=== PATIENT | female | born 2000 | race Caucasian/White ===

== ENCOUNTER 2021-03-22 17:01 | Emergency (ER) | payer MEDICARE, SELFPAY ==
[2021-03-22 18:46] VITALS: BP 121/61; PULSE 78; RESP 18; TEMP 36.6; O2SAT 100; BMI 22.8
[2021-03-22 19:09] LABS: Appearance Urine HAZY; Color Urine YELLOW; Glucose Urine UA NEG (NEG); Leukocyte Esterase Urine NEG (NEG); Nitrite Urine NEG (NEG); PH 7.5 (5.0-8.0); Urine Blood NEG (NEG); Urine Ketones NEG (NEG); Urine Protein NEG (NEG-TRACE)
[2021-03-22 19:13] LABS: UPreg QC Valid YES; Urine Pregnancy NEGATIVE (NEGATIVE)
--- NOTE | 2021-03-22 21:28 | ED.GENADULT ---
HPI - General Adult General Chief complaint: OB Stated complaint: test Time Seen by Provider: 03/22/21 19:27 Source: patient Mode of arrival: ambulatory Limitations: no limitations History of Present Illness HPI narrative: Patient presents to the ED requesting test. Patient states she is 8 days late on her period. Patient states she took a test at home was faintly positive. Patient denies any vaginal bleeding or severe abdominal pain. Patient denies any dysuria, hematuria, vaginal discharge, flank pain, fever, or chills. Related Data Allergies Allergy/AdvReac Type Severity Reaction Status Date / Time No Known Allergies Allergy Verified 03/22/21 18:46 Review of Systems Review of Systems: Yes all other systems are reviewed and are negative Constitutional: Constitutional: Reports as per HPI and Reports no additional constitutional complaints Eyes: Eyes: Reports as per HPI and Reports no additional eye complaints ENT: Reports system reviewed and no additional complaints, except as documented and Reports as per HPI Cardiovascular: Cardiovascular: Reports as per HPI and Reports no additional cardiovascular complaints Respiratory: Respiratory: Reports as per HPI and Reports no additional respiratory complaints Gastrointestinal: Gastrointestinal: Reports as per HPI and Reports no additional gastrointestinal complaints Genitourinary: Genitourinary: Reports no additional female genitourinary complaints and Reports as per HPI Musculoskeletal: Musculoskeletal: Reports no additional musculoskeletal complaints and Reports as per HPI Neurologic: Reports system reviewed and no additional complaints, except as documented and Reports as per HPI Psychiatric: Psychiatric: Reports no additional psychiatric complaints and Reports as per HPI Endocrine: Endocrine: Reports no additional endocrine complaints and Reports as per HPI [facility] Social History Social History Advance Directives: No Advance Directives Information Provided: Yes Physical Exam Vital Signs: Vital Signs: Last Vital Signs Temp 97.8 F 03/22/21 18:46 Pulse 78 03/22/21 18:46 Resp 18 03/22/21 18:46 BP 121/61 03/22/21 18:46 Pulse Ox 100 03/22/21 18:46 Body Mass Index 22.8 Const: General: cooperative, healthy appearing, comfortable, no acute distress, well developed, alert, awake and Physically active Orientation/consciousness: patient oriented x3 HENMT: Head: Yes normal to inspection, Yes No palpable skull fracture present, Yes normocephalic, Yes atraumatic and No abrasion Eyes: General: appearance normal, both eyes and all related structures Neck: Neck: Yes normal visual inspection, Yes full ROM, Yes no lymphadenopathy, Yes no meningeal signs, Yes trachea midline, Yes supple and No tender Chest: Chest palpation & inspection: normal inspection of the chest and normal palpation of entire chest wall Resp: Effort & Inspection: normal respiratory effort and able to speak in complete sentences Cardio: Jugular venous distension: no JVD Heart sounds: S1 normal heart sound present and S2 normal heart sound present GI: Inspection: Yes normal to inspection and No abdominal wall ecchymosis Palpation (GI): Soft to palpation, not firm, nontender, no guarding and not rigid : General: No CVA tenderness and Yes no CVA tenderness Back/Spine/Pelvis: Back: no CVA tenderness, No CVA tenderness and No back tenderness Skin: General skin exam: no rashes or lesions noted and elasticity normal Neuro: General: patient oriented x3, gait normal, no meningeal signs and CN's II-XI intact bilaterally Cranial nerves: Yes CN's II-XII intact bilaterally Extrem: General: Yes normal to inspection and Yes full ROM Psych: Appearance: grossly normal, well kempt and not disheveled Course Course Course Narrative: UA and UCG negative. BCG order as per patient request. Reevaluation(s) Reevaluation #1: Patient's test came back negative Time: 23:10 Medical Decision Making [facility] Narrative Medical decision making narrative: Negative test Lab Data Labs: Lab Results 03/22/21 03/22/21 03/22/21 Range/Units 18:54 18:54 21:45 Beta HCG, Quant < 2 mIU/mL Urine Color YELLOW Urine Appearance HAZY Urine pH 7.5 (5.0-8.0) Ur Specific [place] 1.020 (1.005-1.025) Urine Protein NEG (NEG-TRACE) MG/DL Urine Glucose (UA) NEG (NEG) MG/DL Urine Ketones NEG (NEG) MG/DL Urine Blood NEG (NEG) Urine Nitrite NEG (NEG) Ur Leukocyte Esterase NEG (NEG) Urine Test NEGATIVE (NEGATIVE) Discharge Plan Discharge Clinical Impression: Encounter for test with result negative Patient Disposition: Home, Self-Care Instructions: Normal Exam (ED) Additional Instructions: Return to the ED immediately any vaginal bleeding, vaginal discharge, severe abdominal pain, flank pain, dysuria, hematuria, or any other concerning symptoms. Please follow-up with your primary care provider. Interventions: ED Discharge Assessment Last Done: 03/22/21 23:25 Discharge Date/Time: 03/22/21 23:26 Print Language: Liberian
[2021-03-22 22:28] LABS: HCG Quantitative < 2 mIU/mL
== END 2021-03-22 23:26 | disposition home or self-care (01) ==
PROVIDERS: Physician Assistant; Emergency Provider Internal Medicine
DX: Z32.02 Encounter for pregnancy test, result negative (principal)
CPT/HCPCS: 36415; 81003; 81025; 84702; 99283; 99284

== ENCOUNTER 2021-04-22 23:30 | Emergency (ER) | payer MEDICARE, SELFPAY ==
--- NOTE | ~2021-04-22 | XR_ITS ---
EXAMINATION: XR CHEST CLINICAL INFORMATION: Pain COMPARISON: None TECHNIQUE: Frontal view of the chest was obtained. FINDINGS: Lung volumes are symmetric. No focal consolidation is seen. No evidence of pneumothorax, pleural effusion, or pulmonary edema. The cardiomediastinal contour is unremarkable. No acute osseous findings are seen. XR/XR chest 1V IMPRESSION: No acute cardiopulmonary findings.
--- NOTE | ~2021-04-22 | CT_ITS ---
EXAMINATION: CT ANGIOGRAM OF THE CHEST WITH AND WITHOUT CONTRAST (CT PULMONARY ANGIOGRAM FOR PE) CLINICAL INFORMATION: Reason for Exam elevated ddimer chest pain COMPARISON: Chest x-ray 04/22/2021 TECHNIQUE: Prior to contrast administration, noncontrast localization images were obtained. Subsequently, multidetector volumetric imaging was performed from the thoracic inlet to below the diaphragms following the administration of 65 mL Omnipaque 350 intravenous contrast. No contrast reaction reported Sagittal, coronal, and MIP oblique sagittal reformatted images were obtained on the CT workstation, uploaded to PACS, and reviewed. This CT examination was performed using dose optimization techniques as appropriate, variously including the following: *Automated exposure control *Adjustment of mA and/or kV according to patient size (this includes techniques or standardized protocols for targeted exams where dose is matched to indication/reason for exam; i.e. extremities or head) *Use of iterative reconstruction technique Total exam dose-length product 162 mGy-cm FINDINGS: QUALITY OF STUDY/CONTRAST BOLUS: Satisfactory. PULMONARY ARTERIES: No central or segmental pulmonary emboli. THORACIC AORTA: No aneurysm or dissection. LUNG: No regions of consolidation. A few small nodules along the left major fissure are most suggestive of lymph nodes. PLEURA: No pleural effusion or pneumothorax. MEDIASTINUM: The visualized thyroid gland is unremarkable. There are subcentimeter mediastinal lymph nodes within the range of normal variation. Cardiac size is within normal limits; no pericardial effusion. No evidence of septal bowing or right heart strain. CHEST WALL/AXILLA: No axillary or internal mammary lymphadenopathy. OSSEOUS STRUCTURES: No acute or suspicious osseous abnormality. UPPER ABDOMEN: Unremarkable. No reflux of contrast into the hepatic veins to suggest elevated right heart pressures. CT/CT angio chest PE protocol IMPRESSION: No pulmonary embolus identified. VTE: negative
[2021-04-22 23:35] VITALS: BP 118/74; PULSE 102; RESP 16; TEMP 37.1; O2SAT 100; BMI 21.9
--- NOTE | 2021-04-22 23:37 | ECG_ITS ---
Test Reason : cp Blood Pressure : / mmHG Vent. Rate : 098 BPM Atrial Rate : 098 BPM P-R Int : 138 ms QRS Dur : 082 ms QT Int : 338 ms P-R-T Axes : 068 069 039 degrees QTc Int : 431 ms Normal sinus rhythm RSR' or QR pattern in V1 suggests right ventricular conduction delay Nonspecific ST abnormality Inferior leads Abnormal ECG No previous ECGs available Referred By: Anna Ornelas Electronically Signed By:DOM MORENO MD
--- NOTE | 2021-04-22 23:38 | ED_ITS ---
HPI - Nausea/Vomiting/Diarrhea General Chief complaint: General Medical Stated complaint: Weakness/ 7 Weeks Time Seen by Provider: 04/22/21 23:37 Source: patient Mode of arrival: ambulatory Limitations: no limitations History of Present Illness HPI Narrative: here with c/o nausea and dry heaves for the past few days - she also c/o chest wall pain and tightness made worse with wretching but also notes it is worse when she exerts herself. She is not on any medications at this time for nausea. Just had US with OB confirmed IUP at 7 weeks. MD elicited complaint: nausea, vomiting and other (chest pain) Pertinent past history: other (7 weeks ) Onset (ago): day(s) (3) Description of vomiting: food contents Associated nausea: Yes Associated abdominal pain: No Location of pain: chest (anterior chest wall) Pain consistency: constant Severity: mild Quality: aching Exacerbating factors: movement, exertion and other (trying to eat, palpation) Relieving factors: none Context: other (7 weeks ) Associated symptoms: chest pain, loss of appetite, malaise and nausea/vomiting Related Data Allergies Allergy/AdvReac Type Severity Reaction Status Date / Time No Known Allergies Allergy Verified 03/22/21 18:46 Review of Systems Review of Systems: Constitutional : No Weight loss, No Fever, No Chills ENT/Mouth : No sore throat, No Rhinorrhea Eyes: No Eye Pain, No Swelling Cardiovascular : pos Chest Pain, no SOB, no Dyspnea on Exertion, No Orthopnea, No Edema, No Palpitations Respiratory : No Cough, No Sputum Gastrointestinal : pos Nausea, pos Vomiting, No Diarrhea, No abdominal Pain, No Hematochezia, No Melena Genitourinary : No Dysuria, No Urinary Frequency, no vaginal bleeding Musculoskeletal : No joint pain, No Myalgias, No Joint Swelling Skin : No Skin Lesions, No rash Neuro : pos Weakness, No Numbness, No Dizziness, No Headache Psych : No Anxiety/Panic, No Depression Heme/Lymph: No Bruising, No Lymphadenopathy Endocrine : No Polyuria, No Polydipsia All other systems reviewed and are negative Gastrointestinal: Gastrointestinal: Reports nausea PMFSH Past Medical History Attestation statement: The following information was validated with the patient. Medical History (Updated 04/23/21 @ 00:35 by Brittany Kelly DO) Anemia Preeclampsia Social History Social History (Updated 04/22/21 @ 23:46 by Brittany Kelly DO) Patient Tobacco Use Status: Never used Tobacco Advance Directives: No Advance Directives Information Provided: No Patient : Yes Physical Exam Vital Signs: Vital Signs: Last Vital Signs Temp 98.8 F 04/22/21 23:35 Pulse 102 H 04/22/21 23:35 Resp 16 04/22/21 23:35 BP 118/74 04/22/21 23:35 Pulse Ox 100 04/22/21 23:35 Body Mass Index 21.9 Appearance: Alert. Oriented X3. No acute distress. Eyes: Pupils equal, round and reactive to light. ENT: Pharynx dry MM Neck: Normal inspection. Neck supple. CVS: tachycardic heart rate and rhythm. Pulses normal. Chest: ttp along anterior chest wall Respiratory: No respiratory distress. Breath sounds normal. Abdomen: Soft and non-tender. Skin: Skin warm and dry. pale skin color. Extremities: No lower extremity edema. No calf ttp Neuro: Oriented X 3. No motor deficit. No sensory deficit. Course Course Course Narrative: troponin 57.9 no CHRISTOPHER on EKG, no sig ACS risk factors not on Fe - anemia has increased from her prior given ddimer, troponin and t wave inversions the patient needs CT scan to r/o PE at this time signed out to Dr. Ornelas pending CTA and repeat troponin, patient states she feels much better at this time MDM - Nausea/Vomiting/Diarrhea MDM Narrative Medical decision making narrative: 21 yo female hx of anemia here with n/v and chest pain for a few days she is 7 weeks with confirmed IUP on US with her OB today. At this time she c/o n/v and chest pain, she does have some inverted t waves in anterior leads but no priors are available - will obtain labs, troponin, ddimer given tachycardia / t wave inversions as well as risk, IVF, reglan and benadryl. Dispo per results and findings. Lab Data Result diagrams: 04/22/21 23:59 04/22/21 23:59 Labs: Lab Results 04/22/21 04/22/21 04/22/21 Range/Units 23:59 23:59 23:59 WBC 7.4 (4.8-10.8) X10*3/uL RBC 3.94 L (4.20-5.50) X10*6/uL Hgb 8.6 L (12.0-16.0) g/dl Hct 26.9 L (37-47) % MCV 68.3 L (80-98) fL MCH 21.8 L (27.0-33.0) pg MCHC 32.0 (31.0-35.0) g/dl RDW 18.0 H (11.0-16.0) % Plt Count 208 (160-400) X10*3/uL MPV Not Reportable Immature Gran % (Auto) 0.3 (0.0-0.4) % Neut % (Auto) 66.8 (45-73) % Lymph % (Auto) 17.5 L (20-40) % [place] % (Auto) 14.7 H (2-11) % Eos % (Auto) 0.4 (0-4) % Baso % (Auto) 0.3 (0-2) % Lymph # (Auto) 1.3 (1.2-4.9) X10*3/uL [place] # (Auto) 1.1 (0.1-1.2) X10*3/uL Eos # (Auto) 0.0 (0.0-0.4) X10*3/uL Baso # (Auto) 0.0 (0.0-0.2) X10*3/uL Abs Immat Gran (auto) 0.02 (0.00-0.03) X10*3/uL Absolute Neuts (auto) 5.0 (2.0-8.3) X10*3/uL Absolute Nucleated RBC 0.000 (0.0-0.012) X10*3/uL Nucleated RBC % (auto) 0.0 (0.0-0.2) /100WBC Smear Tech's Comments VERIFIED D-Dimer NG/ML Sodium 133 L (135-145) mmol/L Potassium 3.2 L (3.3-5.1) mmol/L Chloride 100 (96-108) mmol/L Carbon Dioxide 24 (22-29) mmol/L Anion Gap 12 (12-20) BUN 7 L (9-16) mg/dL Creatinine 0.69 (0.5-1.4) mg/dL Estim Creat Clear Calc 100.2 Estimated GFR > 60 Random Glucose 85 (60-115) mg/dL Calcium 8.6 (8.4-10.2) mg/dL Magnesium 1.9 (1.6-2.6) mg/dL Total Bilirubin 0.7 (0.0-1.0) mg/dL Direct Bilirubin 0.4 (0.0-0.5) mg/dL AST 15 (5-31) U/L ALT 11 (0-31) U/L Alkaline Phosphatase 51 (39-117) U/L Troponin I High Sens (<3.5-17.0) ng/L Total Protein 7.8 (6.5-8.0) g/dL Albumin 3.5 (3.5-5.0) g/dL Lipase 25 (8-78) U/L COVID-19 (NEGRA) Negative (Negative) COVID-19 Clin Com See Note 04/22/21 04/22/21 Range/Units 23:59 23:59 WBC (4.8-10.8) X10*3/uL RBC (4.20-5.50) X10*6/uL Hgb (12.0-16.0) g/dl Hct (37-47) % MCV (80-98) fL MCH (27.0-33.0) pg MCHC (31.0-35.0) g/dl RDW (11.0-16.0) % Plt Count (160-400) X10*3/uL MPV Immature Gran % (Auto) (0.0-0.4) % Neut % (Auto) (45-73) % Lymph % (Auto) (20-40) % [place] % (Auto) (2-11) % Eos % (Auto) (0-4) % Baso % (Auto) (0-2) % Lymph # (Auto) (1.2-4.9) X10*3/uL [place] # (Auto) (0.1-1.2) X10*3/uL Eos # (Auto) (0.0-0.4) X10*3/uL Baso # (Auto) (0.0-0.2) X10*3/uL Abs Immat Gran (auto) (0.00-0.03) X10*3/uL Absolute Neuts (auto) (2.0-8.3) X10*3/uL Absolute Nucleated RBC (0.0-0.012) X10*3/uL Nucleated RBC % (auto) (0.0-0.2) /100WBC Smear Tech's Comments D-Dimer 1363 NG/ML Sodium (135-145) mmol/L Potassium (3.3-5.1) mmol/L Chloride (96-108) mmol/L Carbon Dioxide (22-29) mmol/L Anion Gap (12-20) BUN (9-16) mg/dL Creatinine (0.5-1.4) mg/dL Estim Creat Clear Calc Estimated GFR Random Glucose (60-115) mg/dL Calcium (8.4-10.2) mg/dL Magnesium (1.6-2.6) mg/dL Total Bilirubin (0.0-1.0) mg/dL Direct Bilirubin (0.0-0.5) mg/dL AST (5-31) U/L ALT (0-31) U/L Alkaline Phosphatase (39-117) U/L Troponin I High Sens 57.9 H* (<3.5-17.0) ng/L Total Protein (6.5-8.0) g/dL Albumin (3.5-5.0) g/dL Lipase (8-78) U/L COVID-19 (NEGRA) (Negative) COVID-19 Clin Com ECG Data Attestation: I personally reviewed and interpreted this ECG as follows: ECG interpretation date: 04/22/21 ECG interpretation time: 23:49 Interpretation: Rate: 98 Rhythm: NSR [place]: normal Normal P waves. Normal KHALIF. Normal QRS complex. ST T wave : inverted in V1-V3, no CHRISTOPHER qTC: normal prior studies: no prior no sig ischemia The study has been interpreted contemporaneously by me. . Discharge Plan Discharge Clinical Impression: Acute hypokalemia, Acute dehydration, Hyperemesis, Elevated troponin Anemia Qualifiers: Anemia type: unspecified type Qualified Code(s): D64.9 - Anemia, unspecified
--- NOTE | 2021-04-22 23:52 | PC.NURSE ---
XRay at bedside. Plan for IV, labs and meds when finished.
[2021-04-23] MEDS: Metoclopramide HCl 10 MG/2 ML VIAL IVPUSH (00:01)
[2021-04-23] MEDS: 0.9 % Sodium Chloride 1,000 ML 999 ML IVCONT (00:01)
[2021-04-23] MEDS: Famotidine/PF 20 MG/2 ML VIAL IVPUSH (00:01)
[2021-04-23] MEDS: diphenhydrAMINE HCL 50 MG/ML VIAL 25 MG IVPUSH (00:01)
[2021-04-23 00:08] LABS: Eosinophils Percent Auto 0.4 % (0-4); Hemoglobin 8.6 g/dl (12.0-16.0); Imm Gran Abs Auto 0.02 X10*3/uL (0.00-0.03); Imm Gran Pct Auto 0.3 % (0.0-0.4); Lymphocytes Percent Auto 17.5 % (20-40); MANUAL DIFF FLAG SCAN; SCAN SMEAR FLAG 1
[2021-04-23 00:10] LABS: Basophils Percent Auto 0.3 % (0-2); Hematocrit 26.9 % (37-47); Lymphocytes Absolute Auto 1.3 X10*3/uL (1.2-4.9); Mean Corpuscular Hemoglobin 21.8 pg (27.0-33.0); Mean Corpuscular Volume 68.3 fL (80-98); Monocytes Absolute Auto 1.1 X10*3/uL (0.1-1.2); Monocytes Percent Auto 14.7 % (2-11); Neutrophils Percent Auto 66.8 % (45-73); Platelet Count 208 X10*3/uL (160-400); Red Blood Count 3.94 X10*6/uL (4.20-5.50); White Blood Count 7.4 X10*3/uL (4.8-10.8)
[2021-04-23 00:11] LABS: PLT ABN DIST 1
[2021-04-23 00:24] LABS: Alanine Aminotransferase 11 U/L (0-31); Albumin Level 3.5 g/dL (3.5-5.0); Alkaline Phosphatase 51 U/L (39-117); Anion Gap 12 (12-20); Aspartate Amino Transferase 15 U/L (5-31); Bilirubin Direct 0.4 mg/dL (0.0-0.5); Bilirubin Total 0.7 mg/dL (0.0-1.0); Blood Urea Nitrogen 7 mg/dL (9-16); Calcium 8.6 mg/dL (8.4-10.2); Carbon Dioxide 24 mmol/L (22-29); Chloride 100 mmol/L (96-108); Creatinine Clr Calc Pharmacy 100.2; Estimated Glomerular Filt Rate > 60; Glucose Random 85 mg/dL (60-115); Lipase 25 U/L (8-78); Magnesium 1.9 mg/dL (1.6-2.6); Potassium 3.2 mmol/L (3.3-5.1); Sodium 133 mmol/L (135-145); Total Protein 7.8 g/dL (6.5-8.0)
--- NOTE | 2021-04-23 00:27 | PC.NURSE ---
IV established, pt medicated per MAR. Awaiting labs and urine.
[2021-04-23 00:28] LABS: SLIDE REVIEW VERIFIED
[2021-04-23] MEDS: 0.9 % Sodium Chloride 1,000 ML 999 ML IV (00:31)
[2021-04-23] MEDS: Potassium Chloride ER 20 MEQ TAB.ER.PRT PO (00:31)
[2021-04-23 00:34] LABS: IDNOW Serial# 9DD0AD1C; Troponin-I High Sensitivity 57.9 ng/L (<3.5-17.0)
[2021-04-23 00:35] LABS: COVID-19 Test Negative (Negative)
[2021-04-23 00:37] LABS: D Dimer 1363 NG/ML
--- NOTE | 2021-04-23 00:41 | PC.NURSE ---
MD at bedside discussing results and plan of care.
[2021-04-23 00:52] LABS: C Reactive Protein 12.93 mg/dL (< or = 0.50)
--- NOTE | 2021-04-23 00:54 | PC.NURSE ---
Pt off to CT on hospital bed.
[2021-04-23 01:02] LABS: INTERNATIONAL NORM RATIO 1.3 (0.9-1.1); Prothrombin Time 14.3 SEC (9.9-13.0)
[2021-04-23 01:05] LABS: Partial Thromboplastin Time 28.6 SEC (24.1-38.0)
[2021-04-23] MEDS: iohexoL 350 MG/ML 100 ML INFUS..BTL 65 ML IV (01:14)
--- NOTE | 2021-04-23 01:15 | PC.NURSE ---
Pt returns from CT at this time. IVF infusing per MAR. Plan for 0200 Troponin.
[2021-04-23 01:17] LABS: B Type Natriuretic Peptide 79 pg/mL (<100)
[2021-04-23 01:27] VITALS: BP 101/60; PULSE 90; RESP 22; TEMP 37; O2SAT 100
[2021-04-23 01:28] LABS: Erythrocyte Sedimentation Rate 69 MM/HR (0-20)
[2021-04-23 02:43] LABS: Troponin-I High Sensitivity 54.7 ng/L (<3.5-17.0)
--- NOTE | 2021-04-23 03:10 | ECG_ITS ---
Test Reason : REPEAT Blood Pressure : / mmHG Vent. Rate : 092 BPM Atrial Rate : 092 BPM P-R Int : 142 ms QRS Dur : 078 ms QT Int : 350 ms P-R-T Axes : 064 069 046 degrees QTc Int : 432 ms Normal sinus rhythm Normal ECG T wave amplitude has increased in Inferior leads RSR' or QR pattern in V1 suggests right ventricular conduction delay is no longer Present Referred By: Anna Ornelas Electronically Signed By:DOM MORENO MD
--- NOTE | 2021-04-23 03:20 | PC.NURSE ---
emerging technologies director at bedside for repeat EKG.
[2021-04-23 03:23] VITALS: BP 101/53; PULSE 94; RESP 16; TEMP 37.2; O2SAT 100
== END 2021-04-23 03:46 | disposition home or self-care (01) ==
PROVIDERS: Emergency Medicine; Emergency Provider Emergency Medicine
DX: O21.1 Hyperemesis gravidarum with metabolic disturbance (principal); D64.9 Anemia, unspecified; R06.02 Shortness of breath; R77.8 Other specified abnormalities of plasma proteins; Z3A.01 Less than 8 weeks gestation of pregnancy; Z20.822 Contact with and (suspected) exposure to COVID-19; Z79.899 Other long term (current) drug therapy
CPT/HCPCS: 36415; 71045; 71275; 80048; 80076; 83690; 83735; 83880; 84484; 84702; 85025; 85379; 85610; 85652; 85730; 86140; 87635; 93005; 96361; 96374; 96375; 99284; J1200; J2765; Q9967

== ENCOUNTER 2021-07-14 00:45 | Inpatient (IN) | payer MEDICAID, SELFPAY ==
--- NOTE | ~2021-07-14 | US_ITS ---
EXAMINATION: US RETROPERITONEAL LIMITED (RENAL ONLY) CLINICAL INFORMATION: Right-sided flank pain. COMPARISON: Abdominal ultrasound from 04/01/2015 TECHNIQUE: Portable renal and bladder ultrasound performed in the emergency department. FINDINGS: RIGHT KIDNEY: 12.4 x 6.4 x 5.9 cm (SAG x AP x TRV). The kidney is normal in size, contour, and echogenicity. Renal cortical thickness is normal. No calculi or focal parenchymal lesions. There is moderate hydronephrosis. LEFT KIDNEY: 12.3 x 4.8 x 4.7 cm (SAG x AP x TRV). The kidney is normal in size, contour, and echogenicity. Renal cortical thickness is normal. No calculi or focal parenchymal lesions. No hydronephrosis. BLADDER: Bilateral ureteral ureteral jets are present the right jet appears smaller than the left jet. US/US renal BI IMPRESSION: Moderate right hydronephrosis.
--- NOTE | ~2021-07-14 | US_ITS ---
EXAMINATION: ULTRASOUND OB LIMITED CLINICAL INFORMATION: Second trimester with pyelonephritis. Right flank pain. COMPARISON: Ultrasound pelvis 05/15/2019. TECHNIQUE: Limited transabdominal pelvic ultrasound was performed. FINDINGS: There is a single live intrauterine fetus with the good motion and a heart rate of 155 bpm. The fetus is in cephalic position with posterior right placenta. Limited measurements of head circumference 17.62 cm, BPD of 4.51 cm, OFD 57.3 cm, femoral length 2.85 cm and head circumference of 17.26 cm corresponds to an ultrasound gestational age of 19 weeks and 6 days. There is visualization of stomach and bladder. Maternal right ovary measures 3.5 x 3.4 x 2.2 cm and appears within normal limits. Left ovary is not seen. There is no free fluid in the cul-de-sac. US/US OB limited IMPRESSION: 1. Single live intrauterine fetus with good motion and a heart rate of 155 bpm. 2. Limited measurements correspond to an ultrasound gestational age of 19 weeks and 6 days. #.The cervix is normal length measuring 3.7 cm.
[2021-07-14 00:51] VITALS: BP 99/53; PULSE 126; RESP 18; TEMP 36.4; O2SAT 97; BMI 23.8
[2021-07-14 01:19] LABS: Basophils Percent Auto 0.1 % (0-2); Eosinophils Percent Auto 0.2 % (0-4); Hematocrit 24.7 % (37.0-47.0); Hemoglobin 7.9 g/dl (12.0-16.0); Imm Gran Abs Auto 0.05 X10*3/uL (0.00-0.03); Imm Gran Pct Auto 0.5 % (0.0-0.4); Lymphocytes Absolute Auto 1.2 X10*3/uL (1.2-4.9); Lymphocytes Percent Auto 11.8 % (20-40); MANUAL DIFF FLAG NO; Mean Corpuscular Hemoglobin 22.1 pg (27.0-33.0); Mean Corpuscular Volume 69.2 fL (80.0-98.0); Mean Platelet Volume 9.1 fL (9.4-12.3); Monocytes Absolute Auto 1.1 X10*3/uL (0.1-1.2); Monocytes Percent Auto 11.2 % (2-11); Neutrophils Absolute Auto 7.7 x10*3/uL (2.0-8.3); Neutrophils Percent Auto 76.2 % (45-73); Platelet Count 211 X10*3/uL (160-400); Red Blood Count 3.57 X10*6/uL (4.20-5.50)
[2021-07-14 01:39] LABS: Alanine Aminotransferase 8 U/L (0-31); Albumin Level 2.8 g/dL (3.5-5.0); Alkaline Phosphatase 83 U/L (39-117); Anion Gap 11 (12-20); Aspartate Amino Transferase 14 U/L (5-31); Bilirubin Total 0.7 mg/dL (0.0-1.0); Blood Urea Nitrogen 3 mg/dL (9-16); Calcium 8.3 mg/dL (8.4-10.2); Carbon Dioxide 22 mmol/L (22-29); Chloride 103 mmol/L (96-108); Creatinine Clr Calc Pharmacy 108.1; Estimated Glomerular Filt Rate > 60; Glucose Random 107 mg/dL (60-115); Lipase 8 U/L (8-78); Potassium 3.5 mmol/L (3.3-5.1); Sodium 132 mmol/L (135-145); Total Protein 7.4 g/dL (6.5-8.0)
[2021-07-14 01:42] LABS: COVID-19 Test Positive (Negative); IDNOW Serial# 9DD0AD1C
[2021-07-14 02:00] VITALS: BP 122/73; PULSE 118; RESP 15; O2SAT 100
[2021-07-14 04:03] LABS: Appearance Urine CLOUDY; Color Urine YELLOW; Glucose Urine UA NEG (NEG); Leukocyte Esterase Urine 3+ (NEG); Nitrite Urine NEG (NEG); Specific Gravity - Urine 1.015 (1.005-1.025); UACC Culture Trigger YES; UPreg QC Valid YES; Urine Blood 1+ (NEG); Urine Ketones NEG (NEG); Urine Pregnancy POSITIVE (NEGATIVE); Urine Protein 1+ MG/DL (NEG-TRACE)
[2021-07-14 04:12] LABS: Bacteria Urine 4+ /LPF; RBC Urine 0-2 /HPF (0); Squamous Epithelial Cell Urine 3+ /LPF; WBC Clumps Urine NOTED; WBC Urine 50-75 /HPF (0-4)
[2021-07-14 05:21] LABS: HCG Quantitative 115868 mIU/mL
--- NOTE | 2021-07-14 05:26 | ED.ABDPAIN ---
HPI - Abdominal Pain General Chief Complaint: Abdominal Pain <Jeremy Pedroza MD - Last Filed: 07/25/21 06:54> Stated Complaint: R lower back pain; 18 wks 6 days <Jeremy Pedroza MD - Last Filed: 07/25/21 06:54> Time Seen by Provider: 07/14/21 05:26 <Jeremy Pedroza MD - Last Filed: 07/25/21 06:54> Source: patient <Jeremy Pedroza MD - Last Filed: 07/25/21 06:54> Mode of arrival: ambulatory <Jeremy Pedroza MD - Last Filed: 07/25/21 06:54> Limitations: no limitations <Jeremy Pedroza MD - Last Filed: 07/25/21 06:54> History of Present Illness HPI narrative: patient with right sided abdominal pain x 4 days. Patient states the pain is worse today. Patient had chills, no dysuria, no vaginal disharge, no vomiting or diarrhea. Patient is 18 weeks , patient is not vaccinated. no misscariages <Jeremy Pedroza MD - Last Filed: 07/25/21 06:54> MD elicited complaint: abdominal pain <Jeremy Pedroza MD - Last Filed: 07/25/21 06:54> Pertinent past history: none <Jeremy Pedroza MD - Last Filed: 07/25/21 06:54> Onset (ago): day(s) <Jeremy Pedroza MD - Last Filed: 07/25/21 06:54> Pain Consistency: constant <Jeremy Pedroza MD - Last Filed: 07/25/21 06:54> Severity: mild <Jeremy Pedroza MD - Last Filed: 07/25/21 06:54> Quality: stabbing <Jeremy Pedroza MD - Last Filed: 07/25/21 06:54> Radiation: RLQ <Jeremy Pedroza MD - Last Filed: 07/25/21 06:54> Associated symptoms: fever and chills <Jeremy Pedroza MD - Last Filed: 07/25/21 06:54> Related Data Hx Last Menstrual Period: Patient is currently 18 weeks <Jeremy Pedroza MD - Last Filed: 07/25/21 06:54> Home Medications: Previous Rx's Medication Instructions Recorded vit no.78-iron 18 1 cap PO DAILY #30 cap 04/23/21 mg-folic acid no.1 1 mg-dha 300 mg capsule (Prenate DHA (ferrous asparto glycinate)) cefuroxime axetil 500 mg tablet 500 mg PO Q12H 10 Days #20 tab 07/15/21 nitrofurantoin macrocrystal 50 mg 50 mg PO Q24H 30 Days #30 cap 07/15/21 capsule <Jeremy Pedroza MD - Last Filed: 07/25/21 06:54> Allergies/Adverse Reactions: Allergies Allergy/AdvReac Type Severity Reaction Status Date / Time No Known Allergies Allergy Verified 03/22/21 18:46 <Jeremy Pedroza MD - Last Filed: 07/25/21 06:54> Review of Systems Constitutional: Reports no additional constitutional complaints <Jeremy Pedroza MD - Last Filed: 07/25/21 06:54> Eyes: Reports no additional eye complaints <Jeremy Pedroza MD - Last Filed: 07/25/21 06:54> Denies dizziness <Jeremy Pedroza MD - Last Filed: 07/25/21 06:54> Cardiovascular: Reports no additional cardiovascular complaints <Jeremy Pedroza MD - Last Filed: 07/25/21 06:54> Respiratory: Reports as per HPI <Jeremy Pedroza MD - Last Filed: 07/25/21 06:54> Gastrointestinal: Reports no additional gastrointestinal complaints <Jeremy Pedroza MD - Last Filed: 07/25/21 06:54> Genitourinary: Reports no additional female genitourinary complaints <Jeremy Pedroza MD - Last Filed: 07/25/21 06:54> Musculoskeletal: Reports no additional musculoskeletal complaints <Jeremy Pedroza MD - Last Filed: 07/25/21 06:54> Skin/Breast: Denies rash <Jeremy Pedroza MD - Last Filed: 07/25/21 06:54> Reports system reviewed and no additional complaints, except as documented, Denies dizziness and Denies Sensory deficit (Neuro) <Jeremy Pedroza MD - Last Filed: 07/25/21 06:54> Psychiatric: Denies anxiety <Jeremy Pedroza MD - Last Filed: 07/25/21 06:54> Physical Exam Vital Signs: Vital Signs: Last Vital Signs Temp 96.4 F L 07/15/21 11:56 Pulse 84 07/15/21 11:56 Resp 18 07/15/21 11:56 BP 90/40 L 07/15/21 11:56 Pulse Ox 100 07/15/21 11:56 BMI result Body Mass Index 23.8 <Jeremy Pedroza MD - Last Filed: 07/25/21 06:54> Vital Signs: Last Vital Signs Temp 96.4 F L 07/15/21 11:56 Pulse 84 07/15/21 11:56 Resp 18 07/15/21 11:56 BP 90/40 L 07/15/21 11:56 Pulse Ox 100 07/15/21 11:56 BMI result Body Mass Index 23.8 <Anna Ornelas MD - Last Filed: 07/14/21 09:52> Const: General: healthy appearing <Jeremy Pedroza MD - Last Filed: 07/25/21 06:54> Nutritional Appearance: average body habitus <Jeremy Pedroza MD - Last Filed: 07/25/21 06:54> Orientation/consciousness: oriented to person and patient oriented x3 <Jeremy Pedroza MD - Last Filed: 07/25/21 06:54> Limitations: no limitations <Jeremy Pedroza MD - Last Filed: 07/25/21 06:54> HENMT: Head: Yes normal to inspection <Jeremy Pedroza MD - Last Filed: 07/25/21 06:54> Ears: external ears normal <Jeremy Pedroza MD - Last Filed: 07/25/21 06:54> General nose exam: Normal external nose present <Jeremy Pedroza MD - Last Filed: 07/25/21 06:54> Mouth: Normal oral and palatal mucosa present and oropharynx normal <Jeremy Pedroza MD - Last Filed: 07/25/21 06:54> Throat: Yes posterior oropharynx normal <Jeremy Pedroza MD - Last Filed: 07/25/21 06:54> Eyes: General: appearance normal, both eyes and all related structures <Jeremy Pedroza MD - Last Filed: 07/25/21 06:54> Neck: Other: supple <Jeremy Pedroza MD - Last Filed: 07/25/21 06:54> Neck: Yes normal visual inspection <Jeremy Pedroza MD - Last Filed: 07/25/21 06:54> Chest: Chest palpation & inspection: normal inspection of the chest <Jeremy Pedroza MD - Last Filed: 07/25/21 06:54> Resp: Auscultation: clear to auscultation bilaterally <Jeremy Pedroza MD - Last Filed: 07/25/21 06:54> Cardio: Jugular venous distension: no JVD <Jeremy Pedroza MD - Last Filed: 07/25/21 06:54> Rate: regular rate <Jeremy Pedroza MD - Last Filed: 07/25/21 06:54> Rhythm: regular rhythm <Jeremy Pedroza MD - Last Filed: 07/25/21 06:54> Heart sounds: S1 normal heart sound present and S2 normal heart sound present <Jeremy Pedroza MD - Last Filed: 07/25/21 06:54> GI: Other: Patient with gravid abdomen, soft <Jeremy Pedroza MD - Last Filed: 07/25/21 06:54> Auscultation: normal bowel sounds <Jeremy Pedroza MD - Last Filed: 07/25/21 06:54> Back/Spine/Pelvis: Other: moderate right sided CVAT <Jeremy Pedroza MD - Last Filed: 07/25/21 06:54> Skin: General skin exam: no rashes or lesions noted <Jeremy Pedroza MD - Last Filed: 07/25/21 06:54> Neuro: General: oriented to person and patient oriented x3 <Jeremy Pedroza MD - Last Filed: 07/25/21 06:54> Cranial nerves: Yes CN's II-XII intact bilaterally <Jeremy Pedroza MD - Last Filed: 07/25/21 06:54> Motor exam (neuro): 5/5 motor strength present throughout <Jeremy Pedroza MD - Last Filed: 07/25/21 06:54> Sensory Exam: No Sensory deficit (Neuro) <Jeremy Pedroza MD - Last Filed: 07/25/21 06:54> Extrem: General: Yes normal to inspection <Jeremy Pedroza MD - Last Filed: 07/25/21 06:54> Psych: Appearance: grossly normal <Jeremy Pedroza MD - Last Filed: 07/25/21 06:54> Course Course Course Narrative: Patient has all her care at [facility]. We called [facility] trying to transfer her, but unfortunately they do not have any beds. I also discussed the patient with Dr. Ortiz and Dr. Rayo, patient will be admitted here. Patient continues to having flank pain, morphine has been ordered. At this time, sepsis is not suspected. <Anna Ornelas MD - Last Filed: 07/14/21 09:52> Reevaluation(s) Reevaluation #1: At the time of signout patient with suspected pyelonephritis and . She was given ceftriaxone and was awaiting call back from [facility] and Dr. Ortiz <Jeremy Pedroza MD - Last Filed: 07/25/21 06:54> Time: 06:54 <Jeremy Pedroza MD - Last Filed: 07/25/21 06:54> MDM - Abdominal Pain Lab Data Result diagrams: : 07/15/21 08:51 07/15/21 08:51 <Jeremy Pedroza MD - Last Filed: 07/25/21 06:54> Labs: Lab Results 07/14/21 07/14/21 07/14/21 Range/Units 01:11 01:11 01:11 WBC 10.0 (4.8-10.8) X10*3/uL RBC 3.57 L (4.20-5.50) X10*6/uL Hgb 7.9 L (12.0-16.0) g/dl Hct 24.7 L (37.0-47.0) % MCV 69.2 L (80.0-98.0) fL MCH 22.1 L (27.0-33.0) pg MCHC 32.0 (31.0-35.0) g/dl RDW 17.0 H (11.0-16.0) % Plt Count 211 (160-400) X10*3/uL MPV 9.1 L (9.4-12.3) fL Immature Gran % (Auto) 0.5 H (0.0-0.4) % Neut % (Auto) 76.2 H (45-73) % Lymph % (Auto) 11.8 L (20-40) % [place] % (Auto) 11.2 H (2-11) % Eos % (Auto) 0.2 (0-4) % Baso % (Auto) 0.1 (0-2) % Lymph # (Auto) 1.2 (1.2-4.9) X10*3/uL [place] # (Auto) 1.1 (0.1-1.2) X10*3/uL Eos # (Auto) 0.0 (0.0-0.4) X10*3/uL Baso # (Auto) 0.0 (0.0-0.2) X10*3/uL Abs Immat Gran (auto) 0.05 H (0.00-0.03) X10*3/uL Absolute Neuts (auto) 7.7 (2.0-8.3) x10*3/uL Absolute Nucleated RBC 0.000 (0.0-0.012) X10*3/uL Nucleated RBC % (auto) 0.0 (0.0-0.2) /100WBC Sodium 132 L (135-145) mmol/L Potassium 3.5 (3.3-5.1) mmol/L Chloride 103 (96-108) mmol/L Carbon Dioxide 22 (22-29) mmol/L Anion Gap 11 L (12-20) BUN 3 L (9-16) mg/dL Creatinine 0.64 (0.5-1.4) mg/dL Estim Creat Clear Calc 108.1 Estimated GFR > 60 Random Glucose 107 (60-115) mg/dL Calcium 8.3 L (8.4-10.2) mg/dL Total Bilirubin 0.7 (0.0-1.0) mg/dL AST 14 (5-31) U/L ALT 8 (0-31) U/L Alkaline Phosphatase 83 D (39-117) U/L Total Protein 7.4 (6.5-8.0) g/dL Albumin 2.8 L (3.5-5.0) g/dL Lipase 8 (8-78) U/L Beta HCG, Quant 386185 mIU/mL Urine Color Urine Appearance Urine pH (5.0-8.0) Ur Specific [place] (1.005-1.025) Urine Protein (NEG-TRACE) MG/DL Urine Glucose (UA) (NEG) MG/DL Urine Ketones (NEG) MG/DL Urine Blood (NEG) Urine Nitrite (NEG) Ur Leukocyte Esterase (NEG) Urine RBC (0) /HPF Urine WBC (0-4) /HPF Urine WBC Clumps Ur Squamous Epith Cells /LPF Urine Bacteria /LPF Urine Test (NEGATIVE) COVID-19 (NEGRA) Positive A (Negative) COVID-19 Clin Com See Note 07/14/21 07/14/21 Range/Units 03:55 03:55 WBC (4.8-10.8) X10*3/uL RBC (4.20-5.50) X10*6/uL Hgb (12.0-16.0) g/dl Hct (37.0-47.0) % MCV (80.0-98.0) fL MCH (27.0-33.0) pg MCHC (31.0-35.0) g/dl RDW (11.0-16.0) % Plt Count (160-400) X10*3/uL MPV (9.4-12.3) fL Immature Gran % (Auto) (0.0-0.4) % Neut % (Auto) (45-73) % Lymph % (Auto) (20-40) % [place] % (Auto) (2-11) % Eos % (Auto) (0-4) % Baso % (Auto) (0-2) % Lymph # (Auto) (1.2-4.9) X10*3/uL [place] # (Auto) (0.1-1.2) X10*3/uL Eos # (Auto) (0.0-0.4) X10*3/uL Baso # (Auto) (0.0-0.2) X10*3/uL Abs Immat Gran (auto) (0.00-0.03) X10*3/uL Absolute Neuts (auto) (2.0-8.3) x10*3/uL Absolute Nucleated RBC (0.0-0.012) X10*3/uL Nucleated RBC % (auto) (0.0-0.2) /100WBC Sodium (135-145) mmol/L Potassium (3.3-5.1) mmol/L Chloride (96-108) mmol/L Carbon Dioxide (22-29) mmol/L Anion Gap (12-20) BUN (9-16) mg/dL Creatinine (0.5-1.4) mg/dL Estim Creat Clear Calc Estimated GFR Random Glucose (60-115) mg/dL Calcium (8.4-10.2) mg/dL Total Bilirubin (0.0-1.0) mg/dL AST (5-31) U/L ALT (0-31) U/L Alkaline Phosphatase (39-117) U/L Total Protein (6.5-8.0) g/dL Albumin (3.5-5.0) g/dL Lipase (8-78) U/L Beta HCG, Quant mIU/mL Urine Color YELLOW Urine Appearance CLOUDY Urine pH 6.0 (5.0-8.0) Ur Specific [place] 1.015 (1.005-1.025) Urine Protein 1+ H (NEG-TRACE) MG/DL Urine Glucose (UA) NEG (NEG) MG/DL Urine Ketones NEG (NEG) MG/DL Urine Blood 1+ H (NEG) Urine Nitrite NEG (NEG) Ur Leukocyte Esterase 3+ H (NEG) Urine RBC 0-2 (0) /HPF Urine WBC 50-75 H (0-4) /HPF Urine WBC Clumps NOTED Ur Squamous Epith Cells 3+ /LPF Urine Bacteria 4+ /LPF Urine Test POSITIVE H (NEGATIVE) COVID-19 (NEGRA) (Negative) COVID-19 Clin Com <Jeremy Pedroza MD - Last Filed: 07/25/21 06:54> Lab Results 07/14/21 07/14/21 07/14/21 Range/Units 01:11 01:11 01:11 WBC 10.0 (4.8-10.8) X10*3/uL RBC 3.57 L (4.20-5.50) X10*6/uL Hgb 7.9 L (12.0-16.0) g/dl Hct 24.7 L (37.0-47.0) % MCV 69.2 L (80.0-98.0) fL MCH 22.1 L (27.0-33.0) pg MCHC 32.0 (31.0-35.0) g/dl RDW 17.0 H (11.0-16.0) % Plt Count 211 (160-400) X10*3/uL MPV 9.1 L (9.4-12.3) fL Immature Gran % (Auto) 0.5 H (0.0-0.4) % Neut % (Auto) 76.2 H (45-73) % Lymph % (Auto) 11.8 L (20-40) % [place] % (Auto) 11.2 H (2-11) % Eos % (Auto) 0.2 (0-4) % Baso % (Auto) 0.1 (0-2) % Lymph # (Auto) 1.2 (1.2-4.9) X10*3/uL [place] # (Auto) 1.1 (0.1-1.2) X10*3/uL Eos # (Auto) 0.0 (0.0-0.4) X10*3/uL Baso # (Auto) 0.0 (0.0-0.2) X10*3/uL Abs Immat Gran (auto) 0.05 H (0.00-0.03) X10*3/uL Absolute Neuts (auto) 7.7 (2.0-8.3) x10*3/uL Absolute Nucleated RBC 0.000 (0.0-0.012) X10*3/uL Nucleated RBC % (auto) 0.0 (0.0-0.2) /100WBC Sodium 132 L (135-145) mmol/L Potassium 3.5 (3.3-5.1) mmol/L Chloride 103 (96-108) mmol/L Carbon Dioxide 22 (22-29) mmol/L Anion Gap 11 L (12-20) BUN 3 L (9-16) mg/dL Creatinine 0.64 (0.5-1.4) mg/dL Estim Creat Clear Calc 108.1 Estimated GFR > 60 Random Glucose 107 (60-115) mg/dL Calcium 8.3 L (8.4-10.2) mg/dL Total Bilirubin 0.7 (0.0-1.0) mg/dL AST 14 (5-31) U/L ALT 8 (0-31) U/L Alkaline Phosphatase 83 D (39-117) U/L Total Protein 7.4 (6.5-8.0) g/dL Albumin 2.8 L (3.5-5.0) g/dL Lipase 8 (8-78) U/L Beta HCG, Quant [id number] mIU/mL Urine Color Urine Appearance Urine pH (5.0-8.0) Ur Specific [place] (1.005-1.025) Urine Protein (NEG-TRACE) MG/DL Urine Glucose (UA) (NEG) MG/DL Urine Ketones (NEG) MG/DL Urine Blood (NEG) Urine Nitrite (NEG) Ur Leukocyte Esterase (NEG) Urine RBC (0) /HPF Urine WBC (0-4) /HPF Urine WBC Clumps Ur Squamous Epith Cells /LPF Urine Bacteria /LPF Urine Test (NEGATIVE) COVID-19 (NEGRA) Positive A (Negative) COVID-19 Clin Com See Note 07/14/21 07/14/21 Range/Units 03:55 03:55 WBC (4.8-10.8) X10*3/uL RBC (4.20-5.50) X10*6/uL Hgb (12.0-16.0) g/dl Hct (37.0-47.0) % MCV (80.0-98.0) fL MCH (27.0-33.0) pg MCHC (31.0-35.0) g/dl RDW (11.0-16.0) % Plt Count (160-400) X10*3/uL MPV (9.4-12.3) fL Immature Gran % (Auto) (0.0-0.4) % Neut % (Auto) (45-73) % Lymph % (Auto) (20-40) % [place] % (Auto) (2-11) % Eos % (Auto) (0-4) % Baso % (Auto) (0-2) % Lymph # (Auto) (1.2-4.9) X10*3/uL [place] # (Auto) (0.1-1.2) X10*3/uL Eos # (Auto) (0.0-0.4) X10*3/uL Baso # (Auto) (0.0-0.2) X10*3/uL Abs Immat Gran (auto) (0.00-0.03) X10*3/uL Absolute Neuts (auto) (2.0-8.3) x10*3/uL Absolute Nucleated RBC (0.0-0.012) X10*3/uL Nucleated RBC % (auto) (0.0-0.2) /100WBC Sodium (135-145) mmol/L Potassium (3.3-5.1) mmol/L Chloride (96-108) mmol/L Carbon Dioxide (22-29) mmol/L Anion Gap (12-20) BUN (9-16) mg/dL Creatinine (0.5-1.4) mg/dL Estim Creat Clear Calc Estimated GFR Random Glucose (60-115) mg/dL Calcium (8.4-10.2) mg/dL Total Bilirubin (0.0-1.0) mg/dL AST (5-31) U/L ALT (0-31) U/L Alkaline Phosphatase (39-117) U/L Total Protein (6.5-8.0) g/dL Albumin (3.5-5.0) g/dL Lipase (8-78) U/L Beta HCG, Quant mIU/mL Urine Color YELLOW Urine Appearance CLOUDY Urine pH 6.0 (5.0-8.0) Ur Specific [place] 1.015 (1.005-1.025) Urine Protein 1+ H (NEG-TRACE) MG/DL Urine Glucose (UA) NEG (NEG) MG/DL Urine Ketones NEG (NEG) MG/DL Urine Blood 1+ H (NEG) Urine Nitrite NEG (NEG) Ur Leukocyte Esterase 3+ H (NEG) Urine RBC 0-2 (0) /HPF Urine WBC 50-75 H (0-4) /HPF Urine WBC Clumps NOTED Ur Squamous Epith Cells 3+ /LPF Urine Bacteria 4+ /LPF Urine Test POSITIVE H (NEGATIVE) COVID-19 (NEGRA) (Negative) COVID-19 Clin Com <Anna Ornelas MD - Last Filed: 07/14/21 09:52> Discharge Plan Discharge Clinical Impression: Pyelonephritis affecting , COVID-19 affecting in second trimester <Jeremy Pedroza MD - Last Filed: 07/25/21 06:54> Patient Disposition: Admitted As Inpatient <Jeremy Pedroza MD - Last Filed: 07/25/21 06:54> Interventions: Admission Worksheet (ED) Last Done: 07/15/21 11:25 <Jeremy Pedroza MD - Last Filed: 07/25/21 06:54> Discharge Date/Time: 07/15/21 11:00 <Jeremy Pedroza MD - Last Filed: 07/25/21 06:54> PMFSH Past Medical History Medical History: Medical History Anemia Preeclampsia <Jeremy Pedroza MD - Last Filed: 07/25/21 06:54> Surgical History: Surgical History History of delivery <Jeremy Pedroza MD - Last Filed: 07/25/21 06:54> Hx Last Menstrual Period: Patient is currently 18 weeks <Jeremy Pedroza MD - Last Filed: 07/25/21 06:54> Social History Social History: Social History Alcohol intake: never Patient Tobacco Use Status: Never used Tobacco Use of substances other than those prescribed or required for medical reasons: No Advance Directives: No Patient : Yes <Jeremy Pedroza MD - Last Filed: 07/25/21 06:54>
--- NOTE | 2021-07-14 06:27 | PC.NURSE ---
unable to obtain blood cultures at this time, ultrasound at bedside.
[2021-07-14 07:09] VITALS: BP 95/49; PULSE 104; RESP 14; TEMP 37.5; O2SAT 100
--- NOTE | 2021-07-14 07:25 | PC.NURSE ---
pt state 18 wks 6 days , due 12/09/21. ob is from [facility].
[2021-07-14] MEDS: 0.9 % Sodium Chloride 1,000 ML 999 ML IVCONT ×2 (07:33→09:49)
--- NOTE | 2021-07-14 08:41 | PM.GYNCN ---
ADMINISTRATIVE OFFICE SPECIALIST - CN: [facility] Data of Consult Consult date: 07/14/21 <Juliano Ortiz MD - Last Filed: 07/14/21 10:27> Primary Care Provider: Unknown Physician <Juliano Ortiz MD - Last Filed: 07/14/21 10:27> Consult Narrative Narrative: I was consulted on Ruthie Guzman who is a 21 year old female it 18 weeks of gestation 3 para 2 patient presented emergency room with with right flank pain x 4 days.? Patient states the pain is worse today.? Patient had chills, no dysuria, no vaginal disharge, no vomiting or diarrhea.? Patient is 18 weeks , patient is not vaccinated.? No abdominal cramping, leakage of fluid or vaginal bleeding. The workup in the emergency room included the following COVID positive, white count 10K, H&H 7.9/24.7, chemistry negative, urine positive blood leukocyte esterase and wbc's Renal ultrasound showed moderate right hydronephrosis OB ultrasound showed the followin. Single live intrauterine fetus with good motion and a heart rate of 155 bpm. ? 2. Limited measurements correspond to an ultrasound gestational age of 19 weeks and 6 days. ? #.The cervix is normal length measuring 3.7 cm. <Juliano Ortiz MD - Last Filed: 07/14/21 10:27> cc:: CC: <Juliano Ortiz MD - Last Filed: 07/14/21 10:27> COMMERCIAL ARTIST LETTERING - Review of Systems Review of Systems ROS Unobtainable: All systems reviewed & are unremarkable except as noted in HPI and below <Juliano Ortiz MD - Last Filed: 07/14/21 10:27> Cardiovascular: Denies Palpatations, Loss of consciousness or Chest pain <Juliano Ortiz MD - Last Filed: 07/14/21 10:27> Respiratory: Denies Cough, Wheezing or Shortness of breath <Juliano Ortiz MD - Last Filed: 07/14/21 10:27> Musculoskeletal: Denies Low back pain <Juliano Ortiz MD - Last Filed: 07/14/21 10:27> Gastrointestinal: Denies Heartburn, Constipation, Diarrhea, Nausea or Vomiting <Juliano Ortiz MD - Last Filed: 07/14/21 10:27> Genitourinary: Denies Pain with urination, Burning with urination or Urinary frequency <Juliano Ortiz MD - Last Filed: 07/14/21 10:27> Neurological: Denies Migranes <Juliano Ortiz MD - Last Filed: 07/14/21 10:27> Psychological: Denies Depression <Juliano Ortiz MD - Last Filed: 07/14/21 10:27> OB PMFSH Past Medical History Medical History: Medical History (Updated 07/14/21 @ 09:52 by Anna Ornelas MD) Anemia Preeclampsia <Juliano Ortiz MD - Last Filed: 07/14/21 10:27> Social History Social History: Social History (Updated 04/22/21 @ 23:46 by Brittany Kelly DO) Alcohol intake: never Patient Tobacco Use Status: Never used Tobacco Use of substances other than those prescribed or required for medical reasons: No Advance Directives: No Patient : Yes <Juliano Ortiz MD - Last Filed: 07/14/21 10:27> Meds Allergies/Adverse reactions: Allergies Allergy/AdvReac Type Severity Reaction Status Date / Time No Known Allergies Allergy Verified 03/22/21 18:46 <Juliano Ortiz MD - Last Filed: 07/14/21 10:27> Active Medications: Current Medications Ceftriaxone Sodium 1 gm/ (Sodium Chloride) 50 mls @ 100 mls/hr IV Q12H ELISA <Juliano Ortiz MD - Last Filed: 07/14/21 10:27> ADMINISTRATIVE OFFICE SPECIALIST Physical Exam Vitals Vital signs: Temp Pulse Resp BP Pulse Ox 99.5 F 104 H 14 95/49 L 100 07/14/21 07:09 07/14/21 07:09 07/14/21 07:09 07/14/21 07:09 07/14/21 07:09 BMI result Body Mass Index 23.8 <Juliano Ortiz MD - Last Filed: 07/14/21 10:27> Constitutional General Appearance: Healthy appearing, Well-nourished and Well-developed <Juliano Ortiz MD - Last Filed: 07/14/21 10:27> Psychiatric Mood and Affect: active and alert, normal mood and normal affect <Juliano Ortiz MD - Last Filed: 07/14/21 10:27> Skin Appearance: No rashes and No lesions <Juliano Ortiz MD - Last Filed: 07/14/21 10:27> Lungs Respiratory Effort: No intercostal retractions <Juliano Ortiz MD - Last Filed: 07/14/21 10:27> Auscultation: Clear to auscultation <Juliano Ortiz MD - Last Filed: 07/14/21 10:27> Cardiovascular Auscultation: RRR <Juliano Ortiz MD - Last Filed: 07/14/21 10:27> Abdomen Auscultation/Inspection/Palpation: Normal bowel sounds, Soft, Non-distended, No tenderness and Other (Right CVA tenderness) <Juliano Ortiz MD - Last Filed: 07/14/21 10:27> Female Genitalia (Pelvic) Exam: Deferred <Juliano Ortiz MD - Last Filed: 07/14/21 10:27> ADMINISTRATIVE OFFICE SPECIALIST - Results Labs CBC & Chem 7: : 07/14/21 01:11 07/14/21 01:11 <Juliano Ortiz MD - Last Filed: 07/14/21 10:27> Labs: Short CBC 07/14/21 Range/Units 01:11 WBC 10.0 (4.8-10.8) X10*3/uL Hgb 7.9 L (12.0-16.0) g/dl Hct 24.7 L (37.0-47.0) % Plt Count 211 (160-400) X10*3/uL BMP 07/14/21 01:11 Sodium 132 L Potassium 3.5 Chloride 103 Carbon Dioxide 22 BUN 3 L Creatinine 0.64 Calcium 8.3 L Liver Function 07/14/21 Range/Units 01:11 Total Bilirubin 0.7 (0.0-1.0) mg/dL AST 14 (5-31) U/L ALT 8 (0-31) U/L Alkaline Phosphatase 83 D (39-117) U/L Albumin 2.8 L (3.5-5.0) g/dL Urine 07/14/21 07/14/21 Range/Units 03:55 03:55 Urine Color YELLOW Urine Appearance CLOUDY Urine pH 6.0 (5.0-8.0) Ur Specific [place] 1.015 (1.005-1.025) Urine Protein 1+ H (NEG-TRACE) MG/DL Urine Glucose (UA) NEG (NEG) MG/DL Urine Test POSITIVE H (NEGATIVE) <Juliano Ortiz MD - Last Filed: 07/14/21 10:27> Assessment and Plan (1) Pyelonephritis affecting : Status: Acute <Juliano Ortiz MD - Last Filed: 07/14/21 10:27> Urine culture, blood culture to be sent, start Ceftriaxone 1 g Q 24 hours till CVA tenderness resolves and patient is afebrile for 24 hours , and discharge patient on p.o. Macrobid 100 mg p.o. b.i.d. for 5 days, continued patient on suppression therapy Macrobid 50 mg p.o. q.d. till the end of to decrease the recurrence of pyelonephritis. vitamin 1 tablet p.o. q.d. <Juliano Ortiz MD - Last Filed: 07/14/21 10:27> (2) COVID-19 affecting in second trimester: Status: Acute <Juliano Ortiz MD - Last Filed: 07/14/21 10:27> The patient is a candidate for monoclonal antibodies to be given was the patient is discharged from the hospital in order to lower the risk of COVID severe disease and related hospitalization, counseled the patient regarding the benefits and the risks of monoclonal antibody in . Explained to the patient that it is under emergency authorization, the benefits include reduction in the risk of severe COVID disease, hospitalization and , but there is no long-term studies regarding its effect on and the fetus , if the patient is interested, Will fax the referral form <Juliano Ortiz MD - Last Filed: 07/14/21 10:27>
[2021-07-14 09:20] VITALS: BP 93/46; PULSE 106; RESP 14; TEMP 37.6; O2SAT 100
--- NOTE | 2021-07-14 09:25 | PHA.MEDREC ---
Pharmacy Consult ? Medication Reconciliation Pharmacy has completed the medication reconciliation. Patient reports only taking pre- vitamins. Emeli Pritchett, ZoeD
[2021-07-14] MEDS: cefTRIAXone sodium 1 GM in 0.9 % Sodium Chloride 50 ML IV (09:48)
[2021-07-14] MEDS: Morphine Sulfate 2 MG/ML CARTRIDGE IVPUSH (09:48)
--- NOTE | 2021-07-14 10:24 | PM.IMHP ---
History of Present Illness Date of Service: 07/14/21 Chief Complaint: flank pain and chills This is a 21 yo F with no significant PMH who is @ 18w6d EGA based on FTUS + LMP and presents to [facility] ED with comlpaints of R sided flank pain, dysuria, concentrated urine with associated chills which have been progressively worsening over the last 4 days. She denies any abodminal pain, bleeding or discharge. Denies any uterine cramping or vaginal bleeding. She denies any respiratory symptoms of cough or sob. She denies any measured fevers. She denies any known sick COVID contacts and in fact reports that she does not even leave the house. She reports that her family members are vaccinated for COVID, but she is not. In the ED, the patients UA was suggestive of UTI. Her OB ultrasound shows: 1. Single live intrauterine fetus with good motion and a heart rate of 155 bpm. ? 2. Limited measurements correspond to an ultrasound gestational age of 19 weeks and 6 days. ? #.The cervix is normal length measuring 3.7 cm. Renal Ultrasound shows: Moderate right hydronephrosis. In the ED patient was given IVF, IV antibiotics, Had cultures drawn. [facility] was called for transfer (as patient gets her OB care there) and per ED/Obgyn attending, [facility] does not accept transfers when the featus is non-viable. Case was discussed by the ED providers with certified energy manager Dr. Ortiz and the patient will be admitted for further care at [facility]. Review of Systems Review of Systems: negative [facility] Medical History Anemia Preeclampsia Pertinent family history: she denies any known medical problems that are prevalent in her famnily Surgical History History of delivery Social History Alcohol intake: never Patient Tobacco Use Status: Never used Tobacco Use of substances other than those prescribed or required for medical reasons: No Advance Directives: No Patient : Yes Meds Allergies Allergy/AdvReac Type Severity Reaction Status Date / Time No Known Allergies Allergy Verified 03/22/21 18:46 Active Medications: Current Medications Ceftriaxone Sodium 1 gm/ (Sodium Chloride) 50 mls @ 100 mls/hr IV Q24H [facility] Pharm[facility] Consult (Consult Rx Perform Med Rec) 1 each MISCELLANE ONCE PRN PRN Reason: Consult order Physical Exam Vital Signs and Narrative: Vital Signs: Last Vital Signs Temp 99.6 F 07/14/21 09:20 Pulse 106 H 07/14/21 09:20 Resp 14 07/14/21 09:20 BP 93/46 L 07/14/21 09:20 Pulse Ox 100 07/14/21 09:20 BMI result Body Mass Index 23.8 Const: Other: Constitutional - Awake and Alert, No apparent distress Eyes - PERRLA, EOMI Cardiovascular - S1S2, RRR, No edema Respiratory - Normal lung expansion, Normal respiratory effort, No respiratory distress, CTA bilaterally Gastrointestinal - NT / ND; +BS; No rebound or guarding - R CVA tenderness Extremities - no calf tenderness bilaterally, no swelling Musculoskeletal - Normal inspection, normal ROM Skin - Warm/Dry Neurological - Alert & oriented x3, No focal deficit Psychological - Appropriate affect Results Labs CBC and Chem 7: 07/14/21 01:11 07/14/21 01:11 Labs: Laboratory Results - last 24 hr 07/14/21 07/14/21 07/14/21 01:11 01:11 01:11 MCV 69.2 L MCH 22.1 L MCHC 32.0 RDW 17.0 H Plt Count 211 MPV 9.1 L Immature Gran % (Auto) 0.5 H Neut % (Auto) 76.2 H Lymph % (Auto) 11.8 L [place] % (Auto) 11.2 H Eos % (Auto) 0.2 Baso % (Auto) 0.1 Lymph # (Auto) 1.2 [place] # (Auto) 1.1 Eos # (Auto) 0.0 Baso # (Auto) 0.0 Abs Immat Gran (auto) 0.05 H Absolute Neuts (auto) 7.7 Absolute Nucleated RBC 0.000 Nucleated RBC % (auto) 0.0 Anion Gap 11 L Estim Creat Clear Calc 108.1 Estimated GFR > 60 Random Glucose 107 Calcium 8.3 L Total Bilirubin 0.7 AST 14 ALT 8 Alkaline Phosphatase 83 D Total Protein 7.4 Albumin 2.8 L Lipase 8 Beta HCG, Quant [id number] Urine Color Urine Appearance Urine pH Ur Specific [place] Urine Protein Urine Glucose (UA) Urine Ketones Urine Blood Urine Nitrite Ur Leukocyte Esterase Urine RBC Urine WBC Urine WBC Clumps Ur Squamous Epith Cells Urine Bacteria Urine Test COVID-19 (NEGRA) Positive A COVID-19 Clin Com See Note 07/14/21 07/14/21 03:55 03:55 MCV MCH MCHC RDW Plt Count MPV Immature Gran % (Auto) Neut % (Auto) Lymph % (Auto) [place] % (Auto) Eos % (Auto) Baso % (Auto) Lymph # (Auto) [place] # (Auto) Eos # (Auto) Baso # (Auto) Abs Immat Gran (auto) Absolute Neuts (auto) Absolute Nucleated RBC Nucleated RBC % (auto) Anion Gap Estim Creat Clear Calc Estimated GFR Random Glucose Calcium Total Bilirubin AST ALT Alkaline Phosphatase Total Protein Albumin Lipase Beta HCG, Quant Urine Color YELLOW Urine Appearance CLOUDY Urine pH 6.0 Ur Specific [place] 1.015 Urine Protein 1+ H Urine Glucose (UA) NEG Urine Ketones NEG Urine Blood 1+ H Urine Nitrite NEG Ur Leukocyte Esterase 3+ H Urine RBC 0-2 Urine WBC 50-75 H Urine WBC Clumps NOTED Ur Squamous Epith Cells 3+ Urine Bacteria 4+ Urine Test POSITIVE H COVID-19 (NEGRA) COVID-19 Clin Com Imaging Radiologist's Impressions: Impressions Obstetrics Ultrasound 07/14/21 06:50 IMPRESSION: 1. Single live intrauterine fetus with good motion and a heart rate of 155 bpm. 2. Limited measurements correspond to an ultrasound gestational age of 19 weeks and 6 days. #.The cervix is normal length measuring 3.7 cm. Renal Ultrasound 07/14/21 06:50 IMPRESSION: Moderate right hydronephrosis. Assessment and Plan (1) COVID-19 affecting in second trimester: Status: Acute (2) Pyelonephritis affecting : Status: Acute This is a 21 yo F @ 18w6d EGA based on FTUS + LMP and presents to the ED with R flank pain. Her presentation and work up are consistent with acute pyelonephritis in the 2nd trimester of . She is incidentally positive for COVID, but does not have any respiratory symptoms. 1. Acute R-sided pyelonephritis patient does not have severe sepsis at this time -- her low BP may be related to hormonal changes from IV rocephin F/U Urine and blood cx Ob input appreciated -- d/c on suppressive Macrobid for the remainder of . 2. COVID positive asymptomatic no respiratory symptoms referral for monoclonal antibodies sent by certified energy manager 3. Second trimester pregnangcy @ [id number] by FTUS + LMP pre-robbie vitamins outpatient f/u with her Ob team at [facility] 4. Anemia no evidence of acute blood loss prenatals with MVI 5. R sided hydro Bilateral ureteral jets present; renal function wnl curbside urology -- R sided hydro is a common findings in monitor renal function Full Code DVT pptx, mechanical Quality Stroke Does the patient have a stroke diagnosis?: No VTE Prior VTE?: No VTE Risk Level:: Medical - low VTE Device Contraindication: N/A - Device Ordered VTE Drug Contraindication: Treatment Not Indicated
[2021-07-14 13:21] VITALS: BP 102/47; PULSE 108; RESP 16; TEMP 37.3; O2SAT 98
[2021-07-15 00:42] VITALS: BP 97/46; PULSE 104; RESP 16; TEMP 36.6; O2SAT 100
[2021-07-15] MEDS: Acetaminophen 325 MG TABLET 650 MG PO (01:40)
[2021-07-15 05:33] VITALS: BP 104/54; PULSE 63; RESP 14; TEMP 36.6; O2SAT 100
[2021-07-15 07:06] VITALS: BP 103/53; PULSE 79; RESP 14; TEMP 36.7; O2SAT 99
[2021-07-15] MEDS: Multivitamin TABLET 1 TAB PO (08:06)
[2021-07-15] MEDS: cefTRIAXone sodium 1 GM in 0.9 % Sodium Chloride 50 ML IV (08:07)
[2021-07-15 08:56] LABS: MANUAL DIFF FLAG NO
[2021-07-15 08:59] LABS: Eosinophils Absolute Auto 0.1 X10*3/uL (0.0-0.4); Eosinophils Percent Auto 1.7 % (0-4); Hematocrit 22.7 % (37.0-47.0); Hemoglobin 7.2 g/dl (12.0-16.0); Imm Gran Abs Auto 0.04 X10*3/uL (0.00-0.03); Imm Gran Pct Auto 0.6 % (0.0-0.4); Lymphocytes Absolute Auto 1.2 X10*3/uL (1.2-4.9); Lymphocytes Percent Auto 19.2 % (20-40); Mean Corpuscular HGB Conc 31.7 g/dl (31.0-35.0); Mean Corpuscular Hemoglobin 22.4 pg (27.0-33.0); Mean Corpuscular Volume 70.5 fL (80.0-98.0); Mean Platelet Volume 9.5 fL (9.4-12.3); Monocytes Absolute Auto 0.6 X10*3/uL (0.1-1.2); Monocytes Percent Auto 8.9 % (2-11); Neutrophils Absolute Auto 4.4 x10*3/uL (2.0-8.3); Neutrophils Percent Auto 69.6 % (45-73); Platelet Count 190 X10*3/uL (160-400); Red Blood Count 3.22 X10*6/uL (4.20-5.50); Red Cell Distribution Width 17.5 % (11.0-16.0); White Blood Count 6.4 X10*3/uL (4.8-10.8)
[2021-07-15 09:16] LABS: Anion Gap 10 (12-20); Blood Urea Nitrogen 4 mg/dL (9-16); Calcium 7.8 mg/dL (8.4-10.2); Carbon Dioxide 22 mmol/L (22-29); Chloride 106 mmol/L (96-108); Creatinine Clr Calc Pharmacy 123.5; Estimated Glomerular Filt Rate > 60; Glucose Random 111 mg/dL (60-115); Potassium 3.1 mmol/L (3.3-5.1); Sodium 135 mmol/L (135-145)
--- NOTE | 2021-07-15 11:21 | PM.DS ---
DS: Providers Provider Date of Service: 07/15/21 Date of admission: 07/14/21 10:18 Date of discharge: 07/15/21 Primary care physician: Unknown Physician Consults: 07/14/21 10:23 Consult to Obstetrics / Gynecology Routine Consulting Provider: Juliano Ortiz Reason for consultation: 2nd trimester , pyelonephritis Has provider been notified: Yes Attending physician on discharge: Elio Rayo Discharging clinician: Estefany Carr DS: Diagnosis Discharge Diagnosis (1) COVID-19 affecting in second trimester: Status: Acute (2) Pyelonephritis affecting : Status: Acute DS: Summary Hospital Course Hospital Course: From H&P on day of admission This is a 21 yo F with no significant PMH who is @ 18w6d EGA based on FTUS + LMP and presents to [facility] ED with comlpaints of R sided flank pain, dysuria, concentrated urine with associated chills which have been progressively worsening over the last 4 days. She denies any abodminal pain, bleeding or discharge. Denies any uterine cramping or vaginal bleeding. She denies any respiratory symptoms of cough or sob. She denies any measured fevers. She denies any known sick COVID contacts and in fact reports that she does not even leave the house. She reports that her family members are vaccinated for COVID, but she is not. In the ED, the patients UA was suggestive of UTI. Her OB ultrasound shows:?1. Single live intrauterine fetus with good motion and a heart rate of 155 bpm. 2. Limited measurements correspond to an ultrasound gestational age of 19 weeks and 6 days. #.The cervix is normal length measuring 3.7 cm. Renal Ultrasound shows: Moderate right hydronephrosis. In the ED patient was given IVF, IV antibiotics, Had cultures drawn. [facility] was called for transfer (as patient gets her OB care there) and per ED/Obgyn attending, [facility] [place] when the featus is non-viable. Case was discussed by the ED providers with husbandry person Dr. Ortiz and the patient will be admitted for further care at [facility]. Acute pyelonephritis. Patient was started on IV ceftriaxone. She has remained afebrile. Her CVA tenderness has resolved. Her nausea has resolved and she is tolerating a regular diet. Blood cultures are negative times 24 hours. Urine cultures are growing gram negative rods, final sensitivites not back yet. This was discussed with the patient but she is eager to return home. She will be discharged home to complete course of antibiotics followed by suppressive therapy as recommended by OB. She is instructed to call to schedule follow-up appointment with her supervisor grain and yeast plants. COVID-19. Diagnosed incidentally, no symptoms at this time. The patient is unvaccinated. OB discussed with her monoclonal antibody therapy and she was given a referral for the outpatient setting. She is instructed to follow CDC guidelines for isolation. She is instructed to seek medical care if she becomes short of breath. Anemia. chronic. asymptomatic. recommended to follow up with PCP/OB for further management Time Spent with Patient Time attestation: Total time spent providing and/or coordinating discharge services: Discharge coordination time: Greater than 30 minutes Quality: Stroke Does the patient have a stroke diagnosis?: No Physical Exam Vital Signs: Vital Signs: Last Vital Signs Temp 98.1 F 07/15/21 07:06 Pulse 79 07/15/21 07:06 Resp 14 07/15/21 07:06 BP 103/53 L 07/15/21 07:06 Pulse Ox 99 07/15/21 07:06 BMI result Body Mass Index 23.8 Const: General: cooperative, comfortable, no acute distress, alert and awake Nutritional Appearance: well nourished Orientation/consciousness: patient oriented x3 HENMT: Head: Yes normocephalic and Yes atraumatic Resp: Effort & Inspection: normal respiratory effort and no respiratory distress Cardio: Rate: regular rate Rhythm: regular rhythm GI: Palpation (GI): Soft to palpation and nontender : General: Yes no CVA tenderness Back/Spine/Pelvis: Back: no CVA tenderness Neuro: General: patient oriented x3 DS: Data Data Completed and Pending Labs on day of discharge: Laboratory Results - last 24 hr 07/15/21 07/15/21 08:51 08:51 WBC 6.4 RBC 3.22 L Hgb 7.2 L Hct 22.7 L MCV 70.5 L MCH 22.4 L MCHC 31.7 RDW 17.5 H Plt Count 190 MPV 9.5 Immature Gran % (Auto) 0.6 H Neut % (Auto) 69.6 Lymph % (Auto) 19.2 L [place] % (Auto) 8.9 Eos % (Auto) 1.7 Baso % (Auto) 0.0 Lymph # (Auto) 1.2 [place] # (Auto) 0.6 Eos # (Auto) 0.1 Baso # (Auto) 0.0 Abs Immat Gran (auto) 0.04 H Absolute Neuts (auto) 4.4 Absolute Nucleated RBC 0.000 Nucleated RBC % (auto) 0.0 Sodium 135 Potassium 3.1 L Chloride 106 Carbon Dioxide 22 Anion Gap 10 L BUN 4 L Creatinine 0.56 Estim Creat Clear Calc 123.5 Estimated GFR > 60 Random Glucose 111 Calcium 7.8 L D Preliminary micro results at discharge 07/14/21 Unknown Urine Culture - Preliminary Urine clean catch - Urine king top Gram negative stefany 07/14/21 08:10 Blood Culture - Preliminary Blood - Venous No growth after 24 hours. 07/14/21 08:10 Blood Culture - Preliminary Blood - Venous No growth after 24 hours. Discharge Plan Discharge Patient Disposition: Home, Self-Care Discharge Diagnosis: pyelonephritis covid 19 Referrals: Physician,Unknown J [Primary Care Provider] - 1 Week Discharge Medications: New cefuroxime axetil 500 mg tablet 500 mg PO Q12H 10 Days Qty: 20 RF: 0 nitrofurantoin macrocrystal 50 mg capsule 50 mg PO Q24H 30 Days Qty: 30 RF: 0 Continued Prenate DHA (ferr asp glycin) 18 mg iron-1 mg -300 mg capsule 1 cap PO DAILY Qty: 30 RF: 0 Discharge Orders: Discharge Order (Routine); Ordered 07/15/21 Ordered By: Estefany Carr Activity on Discharge: As tolerated Stand Alone Forms: Patient Portal Discharge page Care Plan Goals: resolution of pyelonephritis (kidney infection) Health Concerns: Acute pyelonephritis Chronic anemia COVID-19 Plan of Treatment: Complete course of cefuroxime for acute kidney infection. After completion of cefuroxime begin taking nitrofurantoin for prevention of future urinary tract infections. Please call to schedule follow-up appointment with OB Follow CDC guidelines for self isolation. CDC Guidelines for home isolation: - Stay away from others - Limit contact with pets and animals: If you must care for a pet, wash your hands before and after interacting with them - Wear a mask if you are sick - Cover your mouth and nose with a tissue when you cough or sneeze. Dispose of tissues in a lined trash can and wash your hands immediately with soap and water for at least 20 seconds. If soap and water are not available, clean hands with alcohol-based hand detective bowling alley that contains at least 60% alcohol. - Clean your hands often with soap and water for at least 20 seconds - Avoid touching your eyes, nose and mouth with unwashed hands - Do not share dishes, drinking glasses, cups, eating utensils, towels, or bedding with other people in your home. After using these items, wash them thoroughly with soap and water or put in the pari mut[employer] ticket cashier. - Clean high-touch surfaces in your isolation area (???sick room??? and bathroom) every day; let a caregiver clean and disinfect high-touch surfaces in other areas of the home. Clean the area or item with soap and water or another detergent if it is dirty. Then, use a household disinfectant. Seek medical attention, but call first: - Seek medical care right away if your illness is worsening (for example, if you have difficulty breathing). - Call your doctor before going in: Before going to the doctor???s office or emergency room, call ahead and tell them your symptoms. They will tell you what to do. - If possible, put on a facemask before you enter the building. If you can???t put on a facemask, try to keep a safe distance from other people (at least 6 feet away). This will help protect the people in the office or waiting room. - Follow care instructions from your healthcare provider and local health department: Your local health authorities will give instructions on checking your symptoms and reporting information. Emergency warning signs for COVID-19: - Difficulty breathing or shortness of breath - Persistent pain or pressure in the chest - New confusion or inability to arouse - Bluish lips or face Assessment: admitted for pyelonephritis incidentally found to have covid 19+ Discharge Date/Time: 07/15/21 13:54
--- NOTE | 2021-07-15 11:22 | MHC.CM.PN ---
Patient has been medically cleared for dc to home today, no services.
[2021-07-15 11:56] VITALS: BP 90/40; PULSE 84; RESP 18; TEMP 35.8; O2SAT 100
== END 2021-07-15 13:54 | disposition home or self-care (01) | DRG 566 ==
LOC: HO.ED 09:51 → HO.EDOVER 07-15 09:14 → HO.IMC 07-15 09:21
PROVIDERS: Admitting Provider Family Medicine; Emergency Provider Emergency Medicine; Visit Provider Physician Assistant Medical
DX: O23.02 Infections of kidney in pregnancy, second trimester (principal); U07.1 COVID-19; O98.512 Other viral diseases complicating pregnancy, second trimester; Z3A.18 18 weeks gestation of pregnancy; Z79.899 Other long term (current) drug therapy
CPT/HCPCS: 36415; 76775; 76815; 80048; 80053; 81001; 81025; 83690; 84702; 85025; 87040; 87086; 87088; 87186; 87635; 99219; 99285; J0696; J2270

== ENCOUNTER 2022-05-25 12:09 | Emergency (ER) | payer MEDICAID, SELFPAY ==
--- NOTE | 2022-05-25 12:13 | ED.NAVMDI ---
HPI - Nausea/Vomiting/Diarrhea General Chief complaint: Upper Respiratory Symptoms Stated complaint: fever, cant keep anything down Time Seen by Provider: 05/25/22 12:12 Source: patient Mode of arrival: ambulatory Limitations: no limitations History of Present Illness HPI Narrative: 22 yo female with history of anemia who presents to the ER for evaluation of nausea, vomiting and not feeling well for the last 2 days. She presents today with her 6-month-old son who has URI symptoms in he started vomiting yesterday. She states she is unable to hold anything down today. She had fever yesterday where she was sweaty but did not take her temperature. She states her son has also had subjective fevers at home. She denies any associated abdominal pain just an upset stomach. She has some body aches and headaches. MD elicited complaint: nausea Onset (ago): day(s) (2) Description of vomiting: food contents Associated nausea: Yes Associated abdominal pain: Yes Location of pain: diffuse Pain consistency: intermittent Severity: mild Quality: aching Exacerbating factors: none Relieving factors: none Associated symptoms: myalgias, fever/chills, headaches, loss of appetite, malaise and nausea/vomiting Related Data Previous Rx's Medication Instructions Recorded vit no.78-iron 18 1 cap PO DAILY #30 caps 04/23/21 mg-folic acid no.1 1 mg-dha 300 mg capsule (Prenate DHA (ferrous asparto glycinate)) cefuroxime axetil 500 mg tablet 500 mg PO Q12H 10 days #20 tabs 07/15/21 nitrofurantoin macrocrystal 50 mg 50 mg PO Q24H 30 days #30 caps 07/15/21 capsule ondansetron 4 mg disintegrating 4 mg PO Q8H PRN nausea and 05/25/22 tablet vomiting #7 tabs Allergies Allergy/AdvReac Type Severity Reaction Status Date / Time No Known Allergies Allergy Verified 03/22/21 18:46 Review of Systems Review of Systems: Constitutional: + Fever, No Chills ENT/Mouth: No sore throat, No Rhinorrhea, No Swallowing Difficulty Eyes: No Eye Pain, No Swelling, No Redness Cardiovascular: No Chest Pain, No SOB, No Orthopnea, No Edema Respiratory: + Cough, No Sputum, No Wheezing, No dyspnea Gastrointestinal: + Nausea, +Vomiting, No Diarrhea, No abdominal Pain Genitourinary: No Dysuria, No Urinary Frequency, No Hematuria Musculoskeletal: No joint pain, No Myalgias Skin: No Skin Lesions, No rash Neuro: + Weakness, No Numbness, No Dizziness, +Headache Heme/Lymph: No Bruising, No Lymphadenopathy Gastrointestinal: Gastrointestinal: Reports nausea PMFSH Past Medical History Medical History Anemia Preeclampsia Surgical History History of delivery Social History Social History Alcohol intake: never Patient Tobacco Use Status: Never used Tobacco Advance Directives: No Advance Directives Information Provided: Yes Physical Exam Vital Signs: Vital Signs: Last Vital Signs Temp 98.8 F 05/25/22 12:18 Pulse 118 H 05/25/22 12:18 Resp 16 05/25/22 12:18 BP 136/82 05/25/22 12:18 Pulse Ox 98 05/25/22 12:18 O2 Del Method 05/25/22 12:18 BMI result Body Mass Index 30.0 Appearance: Alert. Oriented X3. Hunched over holding emesis bag Eyes: Pupils equal, round and reactive to light. ENT: Pharynx normal. Neck: Normal inspection. Neck supple. CVS: Normal heart rate and rhythm. Pulses normal. Respiratory: No respiratory distress. Breath sounds normal. Abdomen: Soft and nontender. +BS x4 Skin: Skin warm and dry. Normal skin color. Normal skin turgor. No rashes. Extremities: No lower extremity edema. Neuro: Oriented X 3. Grossly normal, nonfocal Course Course Course Narrative: 22 yo female presenting with N/V x2 days. She is here with her 6 month old son who has URI symptoms and fever, he vomited once. Tachycardic to 118 on arrival. Afebrile. Abdomen is soft. Will check basic lab workup, hydrate with IV fluids and treat with Zofran. Reevaluation(s) Reevaluation #1: Lab workup unremarkable. Viral panel is negative. Her son did test positive for RSV. Most likely has viral gastroenteritis. Stable for discharge home with supportive care and p.r.n. Zofran. Patient agrees with plan. Medications Administered Discontinued Medications Generic Name Dose Route Start Last Admin Trade Name Florian PRN Reason Stop Dose Admin Lactated Ringer's 1,000 mls @ 999 mls/hr 05/25/22 12:15 05/25/22 12:47 Lr IV 05/25/22 13:15 999 mls/hr .Q1H1M ELISA Administration Ondansetron HCl 4 mg 05/25/22 12:12 05/25/22 12:46 Ondansetron Hcl 4 Mg/2 Ml Vial IVPUSH 05/25/22 12:13 4 mg ONCE ONE Administration MDM - Nausea/Vomiting/Diarrhea Lab Data Result diagrams: 05/25/22 12:45 05/25/22 12:45 Labs: Lab Results 05/25/22 05/25/22 05/25/22 Range/Units 12:24 12:45 12:45 WBC 5.7 (4.8-10.8) X10*3/uL RBC 4.73 D (4.20-5.50) X10*6/uL Hgb 13.6 D (12.0-16.0) g/dl Hct 38.9 D (37.0-47.0) % MCV 82.2 (80.0-98.0) fL MCH 28.8 (27.0-33.0) pg MCHC 35.0 (31.0-35.0) g/dl RDW 11.8 (11.0-16.0) % Plt Count 143 L (160-400) X10*3/uL MPV 11.7 (9.4-12.3) fL Immature Gran % (Auto) 0.2 (0.0-0.4) % Neut % (Auto) 60.2 (45-73) % Lymph % (Auto) 27.6 (20-40) % [place] % (Auto) 11.2 H (2-11) % Eos % (Auto) 0.5 (0-4) % Baso % (Auto) 0.3 (0-2) % Lymph # (Auto) 1.6 (1.2-4.9) X10*3/uL [place] # (Auto) 0.6 (0.1-1.2) X10*3/uL Eos # (Auto) 0.0 (0.0-0.4) X10*3/uL Baso # (Auto) 0.0 (0.0-0.2) X10*3/uL Abs Immat Gran (auto) 0.01 (0.00-0.03) X10*3/uL Absolute Neuts (auto) 3.4 (2.0-8.3) x10*3/uL Absolute Nucleated RBC 0.000 (0.0-0.012) X10*3/uL Nucleated RBC % (auto) 0.0 (0.0-0.2) /100WBC Sodium 139 (135-145) mmol/L Potassium 4.2 D (3.3-5.1) mmol/L Chloride 103 (96-108) mmol/L Carbon Dioxide 26 (22-29) mmol/L Anion Gap 14 (12-20) BUN 9 (9-16) mg/dL Creatinine 0.86 (0.5-1.4) mg/dL Estim Creat Clear Calc 102.8 Estimated GFR > 60 Random Glucose 100 (60-115) mg/dL Calcium 9.4 D (8.4-10.2) mg/dL Magnesium 2.1 (1.6-2.6) mg/dL Total Bilirubin 1.7 H (0.0-1.0) mg/dL Direct Bilirubin 0.7 H (0.0-0.5) mg/dL AST 15 (5-31) U/L ALT 10 (0-31) U/L Alkaline Phosphatase 57 (39-117) U/L Total Protein 8.9 H (6.5-8.0) g/dL Albumin 4.1 (3.5-5.0) g/dL Influenza Type A (PCR) NEGATIVE (Negative) Influenza Type B (PCR) NEGATIVE (Negative) RSV RNA Qual (PCR) NEGATIVE (Negative) SARS-CoV-2 RNA (RT-PCR) NEGATIVE (Negative) Discharge Plan Discharge Clinical Impression: Viral gastroenteritis Patient Disposition: Home, Self-Care Instructions: Gastroenteritis (ED) Additional Instructions: Your lab workup today was normal. You tested negative for COVID, flu, RSV. Your symptoms are most likely due to viral illness. Treatment is supportive care, rest, plenty of oral hydration. Take the prescribed medication as needed for nausea and vomiting. Recommend Pepto-Bismol or Imodium as needed for diarrhea or upset stomach. If you develop new or worsening symptoms call 911 or come back to the ER for further evaluation. Prescriptions: New ondansetron 4 mg tablet,disintegrating 4 mg PO Q8H PRN (Reason: nausea and vomiting) Qty: 7 0RF No Action Prenate DHA (ferr asp glycin) 18 mg iron-1 mg -300 mg capsule 1 cap PO DAILY Qty: 30 0RF cefuroxime axetil 500 mg tablet 500 mg PO Q12H 10 Days Qty: 20 0RF nitrofurantoin macrocrystal 50 mg capsule 50 mg PO Q24H 30 Days Qty: 30 0RF Rx Instructions: must administer with a meal/food
[2022-05-25 12:18] VITALS: BP 136/82; PULSE 118; RESP 16; TEMP 37.1; O2SAT 98
--- OUTSIDE RECORDS SUMMARY | 2022-05-25 12:35 | XMS_ITS | Continuity of Care Document ---
:2000 Author Organization [facility] Address [address] [place] [id number]- Care Team Providers Name Role Phone Gold BARROS, Triston Galan Primary Care Phys[place] [facility] [place] [facility] [address] [address]- [facility] Discharge Disposition: A-D/C Home Attending Physician: Robin BARROS, Yasmany Allison Admitting Physician: Robin BARROS, Yasmany Allison Referring Physician: Adalgisa Velásquez CNM Allergies, Adverse Reactions, Alerts Substance Reaction Severity Status NKA Active Immunizations Given and Recorded Vaccine Date Status Refusal Reason influenza virus vaccine, inactivated 08/21/18 Given Not Given Vaccine Date Status Refusal Reason pneumococcal 23-valent vaccine 08/21/18 Not Given P atient Refuses Medications FLUoxetine 20 mg oral capsule 20 mg, By Mouth, Daily, # 30 tablet, Refills 0, Tot. Refills 0, Maintenance, 08/23/18 13:24:46 EST, Route to Pharmacy Electronically, [id number], [facility]/pharmacy #[id number] Start Date: 08/23/18 Stop Date: 09/22/18 Status: Ordered
--- OUTSIDE RECORDS SUMMARY | 2022-05-25 12:35 | XMS_ITS ---
:2000 Author Care Team Providers Name Role Phone Robb Shannon Primary Care Provider Unavailable Allergies None recorded. Medications None recorded. Problems Name Status Onset Date Source ? 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 ? Known or Suspected Abnormality Affecting Management of Mot her Active ? ? High Risk Care Active ? ? Screening Active ? ? Procedures None recorded. Results Lab Results None recorded. Past Encounters None recorded. Social History None recorded. Vaccine List None recorded. Plan of Care Reminders Provider Appointments None recorded. ? ? Lab None recorded. ? ? Referral None recorded. ? ? Procedures None recorded. ? ? Surgeries None recorded. ? ? Imaging None recorded. ? ? Vitals None recorded.
--- OUTSIDE RECORDS SUMMARY | 2022-05-25 12:35 | XMS_ITS | Continuity of Care Document ---
:2000 Author Organization [facility] Address [address] [place] [phone]- Care Team Providers Name Role Phone Triston Malcolm MD Primary Care Physician Encounter [facility] [place] Date(s): 10/28/21 - 10/29/[address] [address] Discharge Disposition: A-D/C Home Attending Physician: Raj BARROS [OB], Sheryl Alanis Admitting Physician: Raj BARROS [OB], Sheryl Alanis Referring Physician: Raj BARROS [OB], Sheryl Alnais Allergies, Adverse Reactions, Alerts No Known Allergies Immunizations Given and Recorded Vaccine Date Status Refusal Reason influenza virus vaccine, inactivated 08/21/18 Given Not Given Vaccine Date Status Refusal Reason pneumococcal 23-valent vaccine 08/21/18 Not Given P atient Refuses Medications ferrous sulfate 324 mg (65 mg elemental iron) oral delayed release tablet 1 tablet = 324 mg, By Mouth, Daily, # 90 tablet, 0 Refills, Maintenance, 10/29/21 20:12:00 EDT, [facility]/pharmacy #[id number], Partial fill upon patient request if the prescription is for a schedule II opioid drug., 158, cm, 10/28/21 9:26:00 EDT, Height, 73.3, k... Start Date: 10/29/21 Status: OrderedFLUoxetine 20 mg oral capsule 20 mg, By Mouth, Daily, # 30 tablet, Refills 0, Tot. Refills 0, Maintenance, 08/23/18 13:24:46 EST, Route to Pharmacy Electronically, [id number], [facility]/pharmacy #[id number] Start Date: 08/23/18 Stop Date: 09/22/18 Status: OrderedPrenatal Multivitamins By Mouth, Daily, 0 Refills, Maintenance, 10/28/21 3:58:00 EDT, Partial fill upon patient request if the prescription is for a schedule II opioid drug. Start Date: 10/28/21 Status: Ordered Problem List Condition Effective Dates Status Health Status Informant Anxiety(Confirmed) Active Chlamydia(Confirmed) 2017 Active Blood transfusion affecting 09/16/15 Active (Confirmed) COVID-19 affecting in second 07/14/21 Active trimester(Confirmed) Depression(Confirmed) Active Gonorrhea(Confirmed) 2017 Active Preeclampsia(Confirmed) 09/16/15 Active Pyelonephritis(Confirmed) 07/14/21 Active Sickle-cell trait(Confirmed) 03/21/18 Active UTI (urinary tract infection) during 06/02/21 Active (Confirmed) Vaginitis affecting in 07/26/21 Active second trimester, antepartum(Confirmed) Procedures Procedure Date Related Diagnosis Body Site Status section 04/02/18 Completed section 09/16/15 Completed [place] tooth Completed Results Orders for Microbiology Reports Name Date Urine Culture 10/28/21 Microbiology Reports TEST:Urine Culture STATUS:Auth (Verified) BODY SITE: SOURCE:URINE COLLECTED DATE/TIME:10/28/21 6:50 AMUrine Culture SPECIMEN DESCRIPTION : URINE CLEAN CATCH/MIDSTREAM SPECIAL REQUESTS : NONE CULTURE : NO GROWTH REPORT STATUS : FINAL 10/29/2021 Vital Signs Most recent to oldest 1 2 3 [Reference Range]: Height 158 cm 158 cm (10/28/21 9:26 AM) (10/28/21 4:08 AM) Weight 73.3 kg 73.3 kg (10/28/21 9:26 AM) (10/28/21 3:42 AM) Oxygen Saturation [94-100 %] 100 % 100 % 100 % (10/29/21 4:00 PM) (10/29/21 10:45 AM) (10/29/21 10 :30 AM) Pulse Rate [55-90 bpm] 88 bpm (10/28/21 9:26 AM) Body Mass Index [18.5-24.99] 29.36 *H* (10/28/21 9:26 AM) Blood Pressure [90-138/55-84 115/66 mm Hg 125/60 mm Hg 120 /68 mm Hg mm Hg] (10/29/21 4:00 PM) (10/29/21 2:45 PM) (10/29/21 10: 45 AM) Respiratory Rate [16-30 18 br/min 20 br/min 17 br/mi n br/min] (10/29/21 2:45 PM) (10/29/21 9:00 AM) (10/28/21 5:5 3 PM) Temperature [96.8-100.4 DegF] 98.5 DegF 98.1 DegF 98 .3 DegF (10/29/21 4:00 PM) (10/29/21 2:45 PM) (10/29/21 10: 45 AM) Mode of Delivery (Oxygen) Room air Room air (10/29/21 9:00 AM) (10/28/21 4:08 AM) Blood pressure sites Arm, left Arm, left Arm, right (10/28/21 5:53 PM) (10/28/21 9:26 AM) (10/28/21 4:0 8 AM) Temperature Route Oral Oral Oral (10/29/21 4:00 PM) (10/29/21 2:45 PM) (10/29/21 10: 15 AM) Dry Weight 73.3 kg 73.3 kg (10/28/21 9:26 AM) (10/28/21 3:42 AM) Weight Obtained Via Standing scale (10/28/21 3:42 AM) Social History Social History Type Response Smoking Status Never (less than 100 in life time) entered on: 10/28/21 Sex
[2022-05-25] MEDS: ondansetron HCL 4 MG/2 ML VIAL IVPUSH (12:46)
[2022-05-25] MEDS: Lactated Ringers 1,000 ML 999 ML IV (12:47)
[2022-05-25 12:49] LABS: MANUAL DIFF FLAG NO
[2022-05-25 12:50] LABS: Basophils Percent Auto 0.3 % (0-2); Eosinophils Percent Auto 0.5 % (0-4); Hematocrit 38.9 % (37.0-47.0); Hemoglobin 13.6 g/dl (12.0-16.0); Imm Gran Abs Auto 0.01 X10*3/uL (0.00-0.03); Imm Gran Pct Auto 0.2 % (0.0-0.4); Lymphocytes Absolute Auto 1.6 X10*3/uL (1.2-4.9); Lymphocytes Percent Auto 27.6 % (20-40); Mean Corpuscular Hemoglobin 28.8 pg (27.0-33.0); Mean Corpuscular Volume 82.2 fL (80.0-98.0); Mean Platelet Volume 11.7 fL (9.4-12.3); Monocytes Absolute Auto 0.6 X10*3/uL (0.1-1.2); Monocytes Percent Auto 11.2 % (2-11); Neutrophils Absolute Auto 3.4 x10*3/uL (2.0-8.3); Neutrophils Percent Auto 60.2 % (45-73); Platelet Count 143 X10*3/uL (160-400); Red Blood Count 4.73 X10*6/uL (4.20-5.50); Red Cell Distribution Width 11.8 % (11.0-16.0); White Blood Count 5.7 X10*3/uL (4.8-10.8)
[2022-05-25 13:13] LABS: Alanine Aminotransferase 10 U/L (0-31); Albumin Level 4.1 g/dL (3.5-5.0); Alkaline Phosphatase 57 U/L (39-117); Anion Gap 14 (12-20); Aspartate Amino Transferase 15 U/L (5-31); Bilirubin Direct 0.7 mg/dL (0.0-0.5); Bilirubin Total 1.7 mg/dL (0.0-1.0); Blood Urea Nitrogen 9 mg/dL (9-16); Calcium 9.4 mg/dL (8.4-10.2); Carbon Dioxide 26 mmol/L (22-29); Chloride 103 mmol/L (96-108); Creatinine Clr Calc Pharmacy 102.8; Estimated Glomerular Filt Rate > 60; Glucose Random 100 mg/dL (60-115); Magnesium 2.1 mg/dL (1.6-2.6); Potassium 4.2 mmol/L (3.3-5.1); Sodium 139 mmol/L (135-145); Total Protein 8.9 g/dL (6.5-8.0)
[2022-05-25 13:19] LABS: Influenza A PCR NEGATIVE (Negative); Influenza B PCR NEGATIVE (Negative); Resp Syncy Virus RNA Qual PCR NEGATIVE (Negative); SARS COV2 PCR INHOUSE NEGATIVE (Negative)
== END 2022-05-25 13:59 | disposition home or self-care (01) ==
PROVIDERS: Physician Assistant; Emergency Provider Emergency Medicine
DX: A08.4 Viral intestinal infection, unspecified (principal); R11.2 Nausea with vomiting, unspecified; Z20.822 Contact with and (suspected) exposure to COVID-19
CPT/HCPCS: 0241U; 36415; 80048; 80076; 83735; 85025; 96374; 99283; 99284; J2405

== ENCOUNTER 2022-10-04 18:36 | Emergency (ER) | payer MEDICAID, SELFPAY ==
--- NOTE | ~2022-10-04 | US_ITS ---
EXAMINATION: US PELVIS AND TRANSVAGINAL CLINICAL INFORMATION: Vaginal bleeding. COMPARISON: Pelvic ultrasound dated 05/15/2019. TECHNIQUE: Ultrasound of the pelvis is performed using both transabdominal and transvaginal transducers along with Doppler. Transvaginal imaging is performed due to inadequate visualization transabdominally. FINDINGS: UTERUS: The uterus is retroflexed and measures 9.4 x 3.7 x 5.6 cm. No intrauterine gestational sac. The double wall endometrial thickness is 17 mm. The uterus is smooth in contour and has normal myometrial echogenicity. No visible fibroid. ADNEXA: Both ovaries are visualized. There is normal color flow to the adnexa. There is no ovarian torsion. There is no pelvic ascites or fluid collection. Right ovary measures 3.1 x 1.8 x 2.2 cm. Right ovarian volume of 6.4 mL. Left ovary measures 3.6 x 2.4 x 3.1 cm. Left ovarian volume of 14 mL. Left ovarian, slightly complex cyst measuring up to 1.9 x 1.8 x 1.8 cm. No associated Doppler detectable vascular flow. Internal echogenicity could indicate a hemorrhagic cyst. Alternatively, this could represent a corpus luteum. US/US pelvic and transvaginal IMPRESSION: 1. No intrauterine gestational sac. 2. Left ovarian complex cyst measuring up to 1.9 cm. No associated Doppler detectable vascular flow. Internal echogenicity could indicate a hemorrhagic cyst. Alternatively, this could represent a corpus luteum. 3. Sonographically unremarkable right ovary.
[2022-10-04 19:36] VITALS: BP 132/72; PULSE 79; RESP 16; TEMP 36.6; O2SAT 100; BMI 25.6
--- NOTE | 2022-10-04 19:37 | ED_ITS ---
HPI - General Chief complaint: Vaginal Bleeding <NURA Caal - Last Filed: 10/04/22 19:38> Stated complaint: vaginal pain, bleeding, miscarried? <NURA Caal - Last Filed: 10/04/22 19:38> Time Seen by Provider: 10/04/22 21:52 <NURA Caal - Last Filed: 10/04/22 19:38> Source: patient <NURA Hernandez - Last Filed: 10/05/22 01:14> Mode of arrival: ambulatory <NURA Hernandez - Last Filed: 10/05/22 01:14> Limitations: no limitations <NURA Hernandez - Last Filed: 10/05/22 01:14> History of Present Illness HPI Narrative: This is a 22 year old female w/ 2 miscarriages presenting with heavy vaginal bleeding that started about 3 hours prior to patient's arrival. Also reporting associated lower abdominal cramping that is intermittent in nature. Reports she is going through 2 pads in 1 hour. She tells me that she is afraid this may be a miscarriage, she reports that she had a miscarriage in July, she reports are last menstrual period was sometime in August. She tells me that at the end of August and early August she had an at home test that was positive however she is not sure if this was secondary to miscarriage. She never had an ultrasound around that time. She tells me she gets irregular menses at baseline so she is not sure if this is just her period. She tells me shes worried because she passed a big clot which was bright red. No bleeding yesterday. No trauma. Not on thinners. Denies fevers, chills, chest pain, shortness of breath, headache, vision changes, dizziness, weakness, nausea, vomiting. <NURA Hernandez - Last Filed: 10/05/22 01:14> Related Data Home medications: Previous Rx's Medication Instructions Recorded vit no.78-iron 18 1 cap PO DAILY #30 caps 04/23/21 mg-folic acid no.1 1 mg-dha 300 mg capsule (Prenate DHA (ferrous asparto glycinate)) cefuroxime axetil 500 mg tablet 500 mg PO Q12H 10 days #20 tabs 07/15/21 nitrofurantoin macrocrystal 50 mg 50 mg PO Q24H 30 days #30 caps 07/15/21 capsule ondansetron 4 mg disintegrating 4 mg PO Q8H PRN nausea and 05/25/22 tablet vomiting #7 tabs cefuroxime axetil 250 mg tablet 250 mg PO BID 7 days #14 tabs 10/05/22 <NURA Caal - Last Filed: 10/04/22 19:38> Allergies/Adverse reactions: Allergies Allergy/AdvReac Type Severity Reaction Status Date / Time No Known Allergies Allergy Verified 03/22/21 18:46 <NURA Caal Last Filed: 10/04/22 19:38> Review of Systems Review of Systems: Constitutional : No Weight loss, No Fever, No Chills, No Fatigue, No Malaise ENT/Mouth : No sore throat, No Rhinorrhea Eyes: No Eye Pain, No Swelling, No Redness Cardiovascular : No Chest Pain, No SOB, No Dyspnea on Exertion, No Orthopnea, No Edema, No Palpitations Respiratory : No Cough, No Sputum, No Wheezing Gastrointestinal : No Nausea, No Vomiting, No Diarrhea, No Constipation, + abdominal Pain, No Hematochezia, No Melena Genitourinary : No Dysuria, No Urinary Frequency, No Hematuria, + vaginal bleeding Musculoskeletal : No joint pain, No Myalgias, No Joint Swelling Skin : No Skin Lesions, No rash Neuro : No Weakness, No Numbness, No Dizziness, No Headache Psych : No Anxiety/Panic, No Depression All other systems reviewed and are negative <NURA Hernandez Last Filed: 10/05/22 01:14> Yes all other systems are reviewed and are negative <NURA Hernandez Last Filed: 10/05/22 01:14> FORMERLY [facility], [facility] Past Medical History Attestation statement: The following information was validated with the patient. <NURA Hernandez Last Filed: 10/05/22 01:14> Source: old records reviewed and nursing notes reviewed <NURA Hernandez Last Filed: 10/05/22 01:14> Medical History: Medical History Anemia Preeclampsia <NURA Caal - Last Filed: 10/04/22 19:38> Surgical History: Surgical History History of delivery <NURA Caal - Last Filed: 10/04/22 19:38> Social History Social History: Social History Alcohol intake: never Patient Tobacco Use Status: Never used Tobacco Smoked in Last 30 Days: No Use of substances other than those prescribed or required for medical reasons: No Advance Directives: No Advance Directives Information Provided: No <NURA Caal - Last Filed: 10/04/22 19:38> Physical Exam Vital Signs: Vital Signs: Last Vital Signs Temp 97.9 F 10/04/22 22:09 Pulse 76 10/04/22 22:09 Resp 16 10/04/22 22:09 BP 120/71 10/04/22 22:09 Pulse Ox 100 10/04/22 22:09 O2 Del Method Room Air 10/04/22 19:36 BMI result Body Mass Index 25.6 <NURA Caal - Last Filed: 10/04/22 19:38> Vital Signs: Last Vital Signs Temp 97.9 F 10/04/22 22:09 Pulse 76 10/04/22 22:09 Resp 16 10/04/22 22:09 BP 120/71 10/04/22 22:09 Pulse Ox 100 10/04/22 22:09 O2 Del Method Room Air 10/04/22 19:36 BMI result Body Mass Index 25.6 vss <NURA Hernandez - Last Filed: 10/05/22 01:14> Appearance: Alert.? Oriented X3.? No acute distress.? Head: Normocephalic, atraumatic, no step-offs or deformities Eyes: Pupils equal, round and reactive to light.? CVS: Normal heart rate and rhythm.? Pulses normal.? Respiratory: No respiratory distress.? Breath sounds normal.? Abdomen: Soft and nontender.? Skin: Skin warm and dry.? Normal skin color.? Normal skin turgor.? Extremities: No lower extremity edema.? No calf ttp. 5/5 strength to bilateral upper and lower extremities Neuro: Oriented X 3.? No motor deficit.? No sensory deficit. CN 2-12 intact Sensitive exam: Normal external genitalia. Vaginal canal with dark red blood visualized in small clots, [id number] amount. Closed cervical os. No discharge, lesions, lumps or masses. No cervical motion tenderness. Patient tolerated procedure well. No adnexal tenderness <NURA Hernandez - Last Filed: 10/05/22 01:14> Course Course Course Narrative: RME - 22 yo who is currently early state of (LMP early Aug?) with +home test 1 month ago who presents to the ER for evaluation of vaginal bleeding and pelvic cramping that started 3 hours ago. Going through 1 pad per hour and passing clots. History of a miscarriage at 10 weeks gestation Jun 2022. Plan: labs and OB U/S <NURA Caal - Last Filed: 10/04/22 19:38> Reevaluation(s) Reevaluation #1: Patient's CBC with normocytic anemia 11.3 and 33.1, this is improved when compared to patient's baseline. Patient is noted to have no acute electrolyte abnormalities. HCG negative. UA positive nitrates and blood. 3+ bacteria. Swabs were obtained for gonorrhea, chlamydia, Trichomonas, BV and pending. <NURA Hernandez - Last Filed: 10/05/22 01:14> Time: 23:00 <NURA Hernandez - Last Filed: 10/05/22 01:14> Reevaluation #2: He is to and Trichomonas negative. Earlier I did speak to Dr. Salomon JAMES [facility] for a consult since we do not have OBGYN coverage at this time. She tells me that patient was seen on 07/05/2022 at [facility] with a similar story she reports that based off chart review patient stated ?passed fetus at home , at that time patient was noted to have negative hCG. She suspects this is likely patient's menstrual cycle. She tells me unlikely this is an ectopic due to negative hCG. She says unlikely that this is a recent miscarriage as patient's hCG is negative. She also does not feel as though history and my exam findings are consistent with torsion. She recommends prompt OBGYN follow-up. And repeat hCG in a week. <UNRA Hernandez - Last Filed: 10/05/22 01:14> Time: 00:51 <NURA Hernandez - Last Filed: 10/05/22 01:14> Reevaluation #3: Pending repeat CBC to look at H&H. Patient tells me she has only changed her pad twice while being here in the emergency department and she feels as though her bleeding has slowed down a lot. Patient would like to go home. Will be discharged home on Ceftin for possible UTI she tells me she gets them frequently and she did have positive nitrates. She will call OBGYN tomorrow she tells me she has 1 I told her to call 1st thing tomorrow morning. Educated on worrisome signs and symptoms and when to return. Patient verbalizes understanding <NURA Hernandez - Last Filed: 10/05/22 01:14> Time: 00:56 <NURA Hernandez - Last Filed: 10/05/22 01:14> Additional Reevaluation(s): H&H improved. Educated patient on diagnosis and treatment plan, answered all question, patient verbalizes understanding. At this time patient will be discharged home, advised to return with new or worsening symptoms. Educated on worrisome signs and symptoms and when to return. At this time I feel comfortable discharge home. <NURA Hernandez Last Filed: 10/05/22 01:14> Medical Decision Making Medical Decision Making MDM Narrative: 22-year-old female presents with heavy vaginal bleeding that started 3 hours prior to her arrival reports bleeding through 2 pads per hour. History of miscarriages in the past. LMP in August claims she had an at home test as positive in late August and August. History of irregular menses. Physical exam significant for Normal external genitalia. Vaginal canal with dark red blood visualized in small clots, [id number] amount. Closed c ervical os. No discharge, lesions, lumps or masses. No cervical motion tenderness. Patient tolerated procedure well. No adnexal tenderness This is likely patient has normal menses. Low suspicion for ovarian torsion, miscarriage. Other differentials include hemorrhagic cyst, malignancy. Unl ikely acute abdomen, appendicitis, cholecystitis, diverticulitis or pancreatitis Plan labs, imaging, type and screen, ultrasound <NURA Hernandez - Last Filed: 10/05/22 01:14> Differential Diagnosis Differential Diagnoses: The differential diagnosis associated with the presentation includes <NURA Hernandez - Last Filed: 10/05/22 01:14> This is likely patient has normal menses. Low suspicion for ovarian torsion, miscarriage. Other differentials include hemorrhagic cyst, malignancy.Unlikely acute abdomen, appendicitis, cholecystitis, diverticulitis or pancreatitis <NURA Hernandez - Last Filed: 10/05/22 01:14> Admission/Observation Consideration of admission/observation: Escalation of care including admission/observation considered <NURA Hernandez - Last Filed: 10/05/22 01:14> Consult Healthcare Provider Management of the patient was discussed with: [facility] <NURA Hernandez - Last Filed: 10/05/22 01:14> Lab Data MDM Lab Attestation statement: I reviewed the patient's lab results. <NURA Hernandez - Last Filed: 10/05/22 01:14> Result Diagrams: 10/04/22 19:45 10/04/22 19:45 <NURA Caal - Last Filed: 10/04/22 19:38> Labs: Lab Results 10/04/22 10/04/22 10/04/22 Range/Units 19:45 19:45 19:45 WBC 3.5 L (4.8-10.8) X10*3/uL RBC 4.13 L (4.20-5.50) X10*6/uL Hgb 11.3 L (12.0-16.0) g/dl Hct 33.1 L (37.0-47.0) % MCV 80.1 (80.0-98.0) fL MCH 27.4 (27.0-33.0) pg MCHC 34.1 (31.0-35.0) g/dl RDW 12.9 (11.0-16.0) % Plt Count 248 D (160-400) X10*3/uL MPV 11.3 (9.4-12.3) fL Immature Gran % (Auto) 0.0 (0.0-0.4) % Neut % (Auto) 49.8 (45-73) % Lymph % (Auto) 41.6 H (20-40) % Haines % (Auto) 7.7 (2-11) % Eos % (Auto) 0.6 (0-4) % Baso % (Auto) 0.3 (0-2) % Lymph # (Auto) 1.5 (1.2-4.9) X10*3/uL Haines # (Auto) 0.3 (0.1-1.2) X10*3/uL Eos # (Auto) 0.0 (0.0-0.4) X10*3/uL Baso # (Auto) 0.0 (0.0-0.2) X10*3/uL Abs Immat Gran (auto) 0.00 (0.00-0.03) X10*3/uL Absolute Neuts (auto) 1.8 L (2.0-8.3) x10*3/uL Absolute Nucleated RBC 0.000 (0.0-0.012) X10*3/uL Nucleated RBC % (auto) 0.0 (0.0-0.2) /100WBC Sodium 140 (135-145) mmol/L Potassium 4.0 (3.3-5.1) mmol/L Chloride 108 (96-108) mmol/L Carbon Dioxide 26 (22-29) mmol/L Anion Gap 10 L (12-20) BUN 4 L (9-16) mg/dL Creatinine 0.80 (0.5-1.4) mg/dL Estim Creat Clear Calc 94.9 Estimated GFR > 60 Random Glucose 85 (60-115) mg/dL Calcium 8.7 D (8.4-10.2) mg/dL Magnesium 1.9 (1.6-2.6) mg/dL Total Bilirubin 0.9 (0.0-1.0) mg/dL Direct Bilirubin 0.3 (0.0-0.5) mg/dL AST 15 (5-31) U/L ALT 7 (0-31) U/L Alkaline Phosphatase 62 (39-117) U/L Total Protein 7.8 (6.5-8.0) g/dL Albumin 3.8 (3.5-5.0) g/dL Beta HCG, Quant < 2 mIU/mL Urine Color Urine Appearance Urine pH (5.0-9.0) Ur Specific [place] (1.005-1.025) Urine Protein (Neg-Trace) mg/dL Urine Glucose (UA) (Negative) mg/dL Urine Ketones (Negative) mg/dL Urine Blood (Negative) Urine Nitrite (Negative) Ur Leukocyte Esterase (Negative) Urine RBC (0-2) /HPF Urine WBC (0-5) /HPF Ur Squamous Epith Cells (0-2) /HPF Urine Bacteria (None Seen) Hyaline Casts (0-2) /LPF Blood Type O Positive 10/04/22 10/05/22 Range/Units 19:51 00:39 WBC 3.8 L (4.8-10.8) X10*3/uL RBC 4.21 (4.20-5.50) X10*6/uL Hgb 11.5 L (12.0-16.0) g/dl Hct 33.6 L (37.0-47.0) % MCV 79.8 L (80.0-98.0) fL MCH 27.3 (27.0-33.0) pg MCHC 34.2 (31.0-35.0) g/dl RDW 13.0 (11.0-16.0) % Plt Count 251 (160-400) X10*3/uL MPV 11.4 (9.4-12.3) fL Immature Gran % (Auto) 0.0 (0.0-0.4) % Neut % (Auto) 36.7 L (45-73) % Lymph % (Auto) 52.5 H (20-40) % Haines % (Auto) 8.9 (2-11) % Eos % (Auto) 1.6 (0-4) % Baso % (Auto) 0.3 (0-2) % Lymph # (Auto) 2.0 (1.2-4.9) X10*3/uL Haines # (Auto) 0.3 (0.1-1.2) X10*3/uL Eos # (Auto) 0.1 (0.0-0.4) X10*3/uL Baso # (Auto) 0.0 (0.0-0.2) X10*3/uL Abs Immat Gran (auto) 0.00 (0.00-0.03) X10*3/uL Absolute Neuts (auto) 1.4 L (2.0-8.3) x10*3/uL Absolute Nucleated RBC 0.000 (0.0-0.012) X10*3/uL Nucleated RBC % (auto) 0.0 (0.0-0.2) /100WBC Sodium (135-145) mmol/L Potassium (3.3-5.1) mmol/L Chloride (96-108) mmol/L Carbon Dioxide (22-29) mmol/L Anion Gap (12-20) BUN (9-16) mg/dL Creatinine (0.5-1.4) mg/dL Estim Creat Clear Calc Estimated GFR Random Glucose (60-115) mg/dL Calcium (8.4-10.2) mg/dL Magnesium (1.6-2.6) mg/dL Total Bilirubin (0.0-1.0) mg/dL Direct Bilirubin (0.0-0.5) mg/dL AST (5-31) U/L ALT (0-31) U/L Alkaline Phosphatase (39-117) U/L Total Protein (6.5-8.0) g/dL Albumin (3.5-5.0) g/dL Beta HCG, Quant mIU/mL Urine Color Yellow Urine Appearance Clear Urine pH 8.0 (5.0-9.0) Ur Specific [place] 1.010 (1.005-1.025) Urine Protein Trace (Neg-Trace) mg/dL Urine Glucose (UA) Negative (Negative) mg/dL Urine Ketones Negative (Negative) mg/dL Urine Blood Moderate (2+) H (Negative) Urine Nitrite Positive H (Negative) Ur Leukocyte Esterase Moderate (2+) H (Negative) Urine RBC >20 H (0-2) /HPF Urine WBC 21-50 H (0-5) /HPF Ur Squamous Epith Cells 0-2 (0-2) /HPF Urine Bacteria 3+ (None Seen) Hyaline Casts 0-2 (0-2) /LPF Blood Type <NURA Caal - Last Filed: 10/04/22 19:38> Lab Results 10/04/22 10/04/22 10/04/22 Range/Units 19:45 19:45 19:45 WBC 3.5 L (4.8-10.8) X10*3/uL RBC 4.13 L (4.20-5.50) X10*6/uL Hgb 11.3 L (12.0-16.0) g/dl Hct 33.1 L (37.0-47.0) % MCV 80.1 (80.0-98.0) fL MCH 27.4 (27.0-33.0) pg MCHC 34.1 (31.0-35.0) g/dl RDW 12.9 (11.0-16.0) % Plt Count 248 D (160-400) X10*3/uL MPV 11.3 (9.4-12.3) fL Immature Gran % (Auto) 0.0 (0.0-0.4) % Neut % (Auto) 49.8 (45-73) % Lymph % (Auto) 41.6 H (20-40) % Haines % (Auto) 7.7 (2-11) % Eos % (Auto) 0.6 (0-4) % Baso % (Auto) 0.3 (0-2) % Lymph # (Auto) 1.5 (1.2-4.9) X10*3/uL Haines # (Auto) 0.3 (0.1-1.2) X10*3/uL Eos # (Auto) 0.0 (0.0-0.4) X10*3/uL Baso # (Auto) 0.0 (0.0-0.2) X10*3/uL Abs Immat Gran (auto) 0.00 (0.00-0.03) X10*3/uL Absolute Neuts (auto) 1.8 L (2.0-8.3) x10*3/uL Absolute Nucleated RBC 0.000 (0.0-0.012) X10*3/uL Nucleated RBC % (auto) 0.0 (0.0-0.2) /100WBC Sodium 140 (135-145) mmol/L Potassium 4.0 (3.3-5.1) mmol/L Chloride 108 (96-108) mmol/L Carbon Dioxide 26 (22-29) mmol/L Anion Gap 10 L (12-20) BUN 4 L (9-16) mg/dL Creatinine 0.80 (0.5-1.4) mg/dL Estim Creat Clear Calc 94.9 Estimated GFR > 60 Random Glucose 85 (60-115) mg/dL Calcium 8.7 D (8.4-10.2) mg/dL Magnesium 1.9 (1.6-2.6) mg/dL Total Bilirubin 0.9 (0.0-1.0) mg/dL Direct Bilirubin 0.3 (0.0-0.5) mg/dL AST 15 (5-31) U/L ALT 7 (0-31) U/L Alkaline Phosphatase 62 (39-117) U/L Total Protein 7.8 (6.5-8.0) g/dL Albumin 3.8 (3.5-5.0) g/dL Beta HCG, Quant < 2 mIU/mL Urine Color Urine Appearance Urine pH (5.0-9.0) Ur Specific [place] (1.005-1.025) Urine Protein (Neg-Trace) mg/dL Urine Glucose (UA) (Negative) mg/dL Urine Ketones (Negative) mg/dL Urine Blood (Negative) Urine Nitrite (Negative) Ur Leukocyte Esterase (Negative) Urine RBC (0-2) /HPF Urine WBC (0-5) /HPF Ur Squamous Epith Cells (0-2) /HPF Urine Bacteria (None Seen) Hyaline Casts (0-2) /LPF Blood Type O Positive 10/04/22 10/05/22 Range/Units 19:51 00:39 WBC 3.8 L (4.8-10.8) X10*3/uL RBC 4.21 (4.20-5.50) X10*6/uL Hgb 11.5 L (12.0-16.0) g/dl Hct 33.6 L (37.0-47.0) % MCV 79.8 L (80.0-98.0) fL MCH 27.3 (27.0-33.0) pg MCHC 34.2 (31.0-35.0) g/dl RDW 13.0 (11.0-16.0) % Plt Count 251 (160-400) X10*3/uL MPV 11.4 (9.4-12.3) fL Immature Gran % (Auto) 0.0 (0.0-0.4) % Neut % (Auto) 36.7 L (45-73) % Lymph % (Auto) 52.5 H (20-40) % Haines % (Auto) 8.9 (2-11) % Eos % (Auto) 1.6 (0-4) % Baso % (Auto) 0.3 (0-2) % Lymph # (Auto) 2.0 (1.2-4.9) X10*3/uL Haines # (Auto) 0.3 (0.1-1.2) X10*3/uL Eos # (Auto) 0.1 (0.0-0.4) X10*3/uL Baso # (Auto) 0.0 (0.0-0.2) X10*3/uL Abs Immat Gran (auto) 0.00 (0.00-0.03) X10*3/uL Absolute Neuts (auto) 1.4 L (2.0-8.3) x10*3/uL Absolute Nucleated RBC 0.000 (0.0-0.012) X10*3/uL Nucleated RBC % (auto) 0.0 (0.0-0.2) /100WBC Sodium (135-145) mmol/L Potassium (3.3-5.1) mmol/L Chloride (96-108) mmol/L Carbon Dioxide (22-29) mmol/L Anion Gap (12-20) BUN (9-16) mg/dL Creatinine (0.5-1.4) mg/dL Estim Creat Clear Calc Estimated GFR Random Glucose (60-115) mg/dL Calcium (8.4-10.2) mg/dL Magnesium (1.6-2.6) mg/dL Total Bilirubin (0.0-1.0) mg/dL Direct Bilirubin (0.0-0.5) mg/dL AST (5-31) U/L ALT (0-31) U/L Alkaline Phosphatase (39-117) U/L Total Protein (6.5-8.0) g/dL Albumin (3.5-5.0) g/dL Beta HCG, Quant mIU/mL Urine Color Yellow Urine Appearance Clear Urine pH 8.0 (5.0-9.0) Ur Specific [place] 1.010 (1.005-1.025) Urine Protein Trace (Neg-Trace) mg/dL Urine Glucose (UA) Negative (Negative) mg/dL Urine Ketones Negative (Negative) mg/dL Urine Blood Moderate (2+) H (Negative) Urine Nitrite Positive H (Negative) Ur Leukocyte Esterase Moderate (2+) H (Negative) Urine RBC >20 H (0-2) /HPF Urine WBC 21-50 H (0-5) /HPF Ur Squamous Epith Cells 0-2 (0-2) /HPF Urine Bacteria 3+ (None Seen) Hyaline Casts 0-2 (0-2) /LPF Blood Type <NURA Hernandez - Last Filed: 10/05/22 01:14> Independent Interpretation I performed an independent interpretation of an: Ultrasound (Spectral analysis was not performed. There is blood flow within the left ovary. Neither ovary shows anatomic imaging evidence of ovarian torsion. Addendum Dictated By:Ezekiel La MDAddendum Signed By:<Electronically signed by Ezekiel La MD in [place]>10/04/22 2348Addendum Cosigned By:DD/DT: 0) <NURA Hernandez - Last Filed: 10/05/22 01:14> Radiology Impression Discussion of test interpretation with radiology: I have reviewed the radiologist's reading. <NURA Hernandez - Last Filed: 10/05/22 01:14> External Record Review External record reviewed: Inpatient record, Office record, Outpatient record, Prior outpatient labs, Prior outpatient radiology, Primary care record and Outside ED record <NURA Hernandez - Last Filed: 10/05/22 01:14> Core Measures AMI core measures followed: Yes <NURA Hernandez Last Filed: 10/05/22 01:14> Measure exclusions: not indicated <NURA Hernandez Last Filed: 04/06/23 01:14> Critical Care Time Critical Care Time Critical Care Time: Yes <NURA Hernandez Last Filed: 10/05/22 01:14> Total Critical Care Time: 35 <NURA Hernandez Last Filed: 10/05/22 01:14> Attestation: I attest to this time spent taking care of the patient, obtaining history, physical, reviewing labs, imaging, speaking to my attending, speaking to specia list. <NURA Hernandez Last Filed: 10/05/22 01:14> Discharge Plan Discharge Clinical Impression: Vaginal bleeding, Abdominal cramping, UTI (urinary tract infection) <NURA Caal Last Filed: 10/04/22 19:38> Patient Disposition: Home, Self-Care <NURA Caal Last Filed: 10/04/22 19:38> Instructions: Dysfunctional Uterine Bleeding (ED), Abdominal Pain (ED) <NURA Caal Last Filed: 10/04/22 19:38> Additional Instructions: Take your medications as prescribed. If you were prescribed antibiotics today, it is important that you take your medication to their entirety, do not skip any doses, do not finish them early. Follow-up with your primary care provider this week. Please call OBGYN and schedule appointment with them tomorrow if not return to the emergency departme nt Return to the emergency department with new or worsening symptoms. Such as fevers, chills, chest pain, shortness of breath, nausea, vomiting, dizziness, headache, vision changes, lethargy, worsening vaginal bleeding or abdominal pain. In case of emergency call 911 Return if your bleeding/saturating through more than 2 pads an hour. You can have a repeat hCG in a week as recommended by [facility] ?US/US pelvic and transvaginal IMPRESSION: 1. No intrauterine gestational sac. ? 2. Left ovarian complex cyst measuring up to 1.9 cm. No associated Doppler detectable vascular flow. Internal echogenicity could indicate a hemorrhagic cyst. Alternatively, this could represent a corpus luteum. ? 3. Sonographically unremarkable right ovary. There is blood flow within the left ovary. Neither ovary shows anatomic imaging evidence of ovarian torsion. ? <NURA Caal Last Filed: 10/04/22 19:38> Prescriptions: New cefuroxime axetil 250 mg tablet 250 mg PO BID 7 Days Qty: 14 0RF No Action Prenate DHA (ferr asp glycin) 18 mg iron-1 mg -300 mg capsule 1 cap PO DAILY Qty: 30 0RF cefuroxime axetil 500 mg tablet 500 mg PO Q12H 10 Days Qty: 20 0RF nitrofurantoin macrocrystal 50 mg capsule 50 mg PO Q24H 30 Days Qty: 30 0RF Rx Instructions: must administer with a meal/food ondansetron 4 mg tablet,disintegrating 4 mg PO Q8H PRN (Reason: nausea and vomiting) Qty: 7 0RF <NURA Caal - Last Filed: 10/04/22 19:38> Referrals: [facility] [Primary Care Provider] - 2 days <NURA Caal - Last Filed: 10/04/22 19:38> Stand Alone Forms: Work/School Release <NURA Caal - Last Filed: 10/04/22 19:38>
[2022-10-04 19:50] LABS: MANUAL DIFF FLAG NO
[2022-10-04 19:55] LABS: Basophils Percent Auto 0.3 % (0-2); Eosinophils Percent Auto 0.6 % (0-4); Hematocrit 33.1 % (37.0-47.0); Hemoglobin 11.3 g/dl (12.0-16.0); Lymphocytes Absolute Auto 1.5 X10*3/uL (1.2-4.9); Lymphocytes Percent Auto 41.6 % (20-40); Mean Corpuscular HGB Conc 34.1 g/dl (31.0-35.0); Mean Corpuscular Hemoglobin 27.4 pg (27.0-33.0); Mean Corpuscular Volume 80.1 fL (80.0-98.0); Mean Platelet Volume 11.3 fL (9.4-12.3); Monocytes Absolute Auto 0.3 X10*3/uL (0.1-1.2); Monocytes Percent Auto 7.7 % (2-11); Neutrophils Absolute Auto 1.8 x10*3/uL (2.0-8.3); Neutrophils Percent Auto 49.8 % (45-73); Platelet Count 248 X10*3/uL (160-400); Red Blood Count 4.13 X10*6/uL (4.20-5.50); Red Cell Distribution Width 12.9 % (11.0-16.0); White Blood Count 3.5 X10*3/uL (4.8-10.8)
[2022-10-04 20:04] LABS: Appearance Urine Clear; Color Urine Yellow; Glucose Urine UA Negative (Negative); Leukocyte Esterase Urine Moderate (2+) (Negative); Nitrite Urine Positive (Negative); UMIC TRIGGER UACC YES; Urine Blood Moderate (2+) (Negative); Urine Ketones Negative (Negative); Urine Protein Trace mg/dL (Neg-Trace)
[2022-10-04 20:06] LABS: Bacteria Urine 3+ (None Seen); Hyaline Casts Urine 0-2 /LPF (0-2); RBC Urine >20 /HPF (0-2); Squamous Epithelial Cell Urine 0-2 /HPF (0-2); UACC Culture Trigger YES; WBC Urine 21-50 /HPF (0-5)
[2022-10-04 20:16] LABS: Alanine Aminotransferase 7 U/L (0-31); Albumin Level 3.8 g/dL (3.5-5.0); Alkaline Phosphatase 62 U/L (39-117); Anion Gap 10 (12-20); Aspartate Amino Transferase 15 U/L (5-31); Bilirubin Direct 0.3 mg/dL (0.0-0.5); Bilirubin Total 0.9 mg/dL (0.0-1.0); Blood Urea Nitrogen 4 mg/dL (9-16); Calcium 8.7 mg/dL (8.4-10.2); Carbon Dioxide 26 mmol/L (22-29); Chloride 108 mmol/L (96-108); Creatinine Clr Calc Pharmacy 94.9; Estimated Glomerular Filt Rate > 60; Glucose Random 85 mg/dL (60-115); Magnesium 1.9 mg/dL (1.6-2.6); Sodium 140 mmol/L (135-145); Total Protein 7.8 g/dL (6.5-8.0)
[2022-10-04 20:19] LABS: HCG Quantitative < 2 mIU/mL
[2022-10-04 22:09] VITALS: BP 120/71; PULSE 76; RESP 16; TEMP 36.6; O2SAT 100
[2022-10-05 00:59] LABS: Basophils Percent Auto 0.3 % (0-2); Eosinophils Absolute Auto 0.1 X10*3/uL (0.0-0.4); Eosinophils Percent Auto 1.6 % (0-4); Hematocrit 33.6 % (37.0-47.0); Hemoglobin 11.5 g/dl (12.0-16.0); Lymphocytes Percent Auto 52.5 % (20-40); Mean Corpuscular HGB Conc 34.2 g/dl (31.0-35.0); Mean Corpuscular Hemoglobin 27.3 pg (27.0-33.0); Mean Corpuscular Volume 79.8 fL (80.0-98.0); Mean Platelet Volume 11.4 fL (9.4-12.3); Monocytes Absolute Auto 0.3 X10*3/uL (0.1-1.2); Monocytes Percent Auto 8.9 % (2-11); Neutrophils Absolute Auto 1.4 x10*3/uL (2.0-8.3); Neutrophils Percent Auto 36.7 % (45-73); Platelet Count 251 X10*3/uL (160-400); Red Blood Count 4.21 X10*6/uL (4.20-5.50); White Blood Count 3.8 X10*3/uL (4.8-10.8)
[2022-10-05 01:02] LABS: MANUAL DIFF FLAG NO
[2022-10-05 01:24] LABS: CT PCR DETECTED (Not Detect.); NG PCR NOT DETECTED (Not Detect.)
[2022-10-05 10:02] LABS: BV Int Neg Control Negative (Negative); BV Int Pos Control Positive (Positive)
== END 2022-10-05 01:14 | disposition home or self-care (01) ==
PROVIDERS: Physician Assistant; Emergency Provider Emergency Medicine
DX: N93.9 Abnormal uterine and vaginal bleeding, unspecified (principal); R10.30 Lower abdominal pain, unspecified; A56.02 Chlamydial vulvovaginitis; N39.0 Urinary tract infection, site not specified; B96.20 Unspecified Escherichia coli [E. coli] as the cause of diseases classified elsewhere; D64.9 Anemia, unspecified
CPT/HCPCS: 0353U; 36415; 76830; 76856; 80048; 80076; 81001; 83735; 84702; 85025; 86900; 86901; 87086; 87088; 87186; 87480; 87510; 87660; 99284

== ENCOUNTER 2023-01-11 15:57 | Emergency (ER) | payer MEDICAID, SELFPAY ==
[2023-01-11 16:09] VITALS: BP 140/71; PULSE 75; RESP 18; TEMP 36.9; O2SAT 100; BMI 23.2
--- NOTE | 2023-01-11 16:10 | ED_ITS ---
HPI - General Adult General Chief complaint: Abdominal Pain Stated complaint: abd pain,vomiting Time Seen by Provider: 01/11/23 21:17 Source: patient Mode of arrival: ambulatory Limitations: no limitations History of Present Illness HPI narrative: Patient is a 22-year-old female presenting to the emergency department with complaint of epigastric abdominal pain, nausea, vomiting, and diarrhea since last night. Does not feel as though she ate anything bad last night, states she made herself pasta at home. Denies fever. Denies bloody or coffee ground emesis, denies blood in stool or black stool. Denies other sick family members in the home, no recent travel. Patient is afebrile and nontoxic appearing in E D. Surgical history significant for . Related Data Previous Rx's Medication Instructions Recorded vit no.78-iron 18 1 cap PO DAILY #30 caps 04/23/21 mg-folic acid no.1 1 mg-dha 300 mg capsule (Prenate DHA (ferrous asparto glycinate)) cefuroxime axetil 500 mg tablet 500 mg PO Q12H 10 days #20 tabs 07/15/21 nitrofurantoin macrocrystal 50 mg 50 mg PO Q24H 30 days #30 caps 07/15/21 capsule ondansetron 4 mg disintegrating 4 mg PO Q8H PRN nausea and 05/25/22 tablet vomiting #7 tabs cefuroxime axetil 250 mg tablet 250 mg PO BID 7 days #14 tabs 10/05/22 doxycycline hyclate 100 mg tablet 100 mg PO BID #14 tabs 10/07/22 omeprazole 40 mg capsule,delayed 40 mg PO DAILY #14 caps 01/11/23 release Allergies Allergy/AdvReac Type Severity Reaction Status Date / Time No Known Allergies Allergy Verified 03/22/21 18:46 Review of Systems Review of Systems: All other systems are reviewed and are negative Constitutional: Reports as per HPI and Reports no additional constitutional complaints Eyes: Reports as per HPI and Reports no additional eye complaints Reports system reviewed and no additional complaints, except as documented Cardiovascular: Reports as per HPI and Reports no additional cardiovascular complaints Respiratory: Reports as per HPI and Reports no additional respiratory complaints Gastrointestinal: Reports as per HPI and Reports no additional gastrointestinal complaints Genitourinary: Reports no additional female genitourinary complaints Musculoskeletal: Reports no additional musculoskeletal complaints Skin/Breast: Reports system reviewed and no additional complaints, except as docu Psychiatric: Reports no additional psychiatric complaints Endocrine: Reports no additional endocrine complaints Hematologic/Lymphatic: Reports no additional hematologic/lymphatic complaints Allergic/Immunologic: Reports no additional allergic/immunologic complaints Reports system reviewed and no additional complaints, except as documented and Reports Abnormal speech present [facility] Past Medical History Medical History Anemia Preeclampsia Surgical History History of delivery Social History Social History Alcohol intake: never Patient Tobacco Use Status: Never used Tobacco Smoked in Last 30 Days: No Use of substances other than those prescribed or required for medical reasons: No Advance Directives: No Advance Directives Information Provided: Yes Patient : No Physical Exam ED Vital Signs: Vital Signs - 24 hr 01/11/23 16:09 01/11/23 21:39 01/11/23 23:10 Temperature 98.4 F 98.1 F 98.1 F Pulse Rate 75 77 64 Respiratory Rate 18 16 12 Blood Pressure 140/71 H 113/61 100/57 L Pulse Oximetry 100 100 100 Oxygen Delivery Method Room Air Room Air Room Air BMI result Body Mass Index 23.2 Vital signs have been reviewed as appeared to be correct. Blood pressure nor mal. Heart rate normal. Respiration rate normal. Temperature normal. Oxygen saturation normal. Appearance: Alert. Oriented X3. No acute distress. Head: Normal external exam. Normocephalic. Atraumatic. No Dumont signs noted. No raccoon eyes noted Eyes: PERRLA. EOMI. Conjunctiva and sclera normal. Eyelids normal. ENT: TM's Normal. Pharynx normal. Uvula midline. Moist mucous membranes. No trismus noted. No drooling noted. No muffled voice noted. Neck: Normal inspection. Neck supple. FROM. No adenopathy. Thyroid Normal. No meningeal signs. No neck mass noted. CVS: Normal heart rate and rhythm. Heart sound normal. No murmurs noted. Pulses normal throughout. Respiratory: No respiratory distress. Painless inspiration. Breath sounds normal. No wheezes/rales/rhonchi noted. Chest nontender. No accessory muscle usage noted or decreased air movement noted. Abdomen: Soft, epigastric tenderness, no guarding, no rebound tenderness. Bowel sounds normal in all 4 quadrants. No distention noted. No organomegaly noted. No visible injury noted. Back: No CVA tenderness. Full range of motion noted. Skin: Skin warm and dry. Normal skin color. Normal skin turgor. No rashes/lesions/lacerations noted. Extremities: No lower extremity edema. Extremities exhibit normal range of motion. Extremities nontender. Neuro: Oriented X 3. Cranial nerve exam: II-XII are grossly intact No motor deficit. No sensory deficit. Reflexes normal. Course Course Course Narrative: This is a rapid medical exam: Additional HPI, ROS, PE not included below will be deferred to primary provider. Plan: labs, UA Reevaluation(s) Reevaluation #1: 22-year-old female came in for evaluation of epigastric pain, and vomiting. Physical exam and labs are consistent with gastritis. Patient feels and able to tolerate p.o. intake will discharge on Prilosec and follow-up with GI. Medications Administered Discontinued Medications Generic Name Dose Route Start Last Admin Trade Name Freq PRN Reason Stop Dose Admin Al Hydroxide/Mg Hydroxide 30 ml 01/11/23 21:25 01/11/23 23:05 Magnesium Hydrox/Alum Hydrox 30 Ml Oral.Susp PO 01/11/23 21:26 30 ml ONCE ONE Administration Famotidine 20 mg 01/11/23 21:25 01/11/23 23:06 Famotidine/Pf 20 Mg/2 Ml Vial IVPUSH 01/11/23 21:26 20 mg ONCE ONE Administration Sodium Chloride 1,000 mls @ 999 mls/hr 01/11/23 21:26 01/11/23 23:05 Ns IV 01/11/23 22:26 999 mls/hr .Q1H1M ONE Administration Ondansetron HCl 4 mg 01/11/23 21:25 01/11/23 23:06 Ondansetron Hcl 4 Mg/2 Ml Vial IVPUSH 01/11/23 21:26 4 mg ONCE ONE Administration Medical Decision Making Differential Diagnosis Differential Diagnoses: The differential diagnosis associated with the presenta tion includes (Food poisoning, gastroenteritis, gastritis, pancreatitis, dehydration, electrolyte abnormalities, severe anemia.) Admission/Observation Consideration of admission/observation: Escalation of care including admission/observation considered Lab Data MDM Lab Attestation statement: I reviewed the patient's lab results. 01/11/23 16:42 01/11/23 16:42 Labs: Lab Results 01/11/23 01/11/23 01/11/23 Range/Units 16:42 16:42 16:42 WBC 3.9 L (4.8-10.8) X10*3/uL RBC 4.50 (4.20-5.50) X10*6/uL Hgb 9.8 L (12.0-16.0) g/dl Hct 32.1 L (37.0-47.0) % MCV 71.3 L (80.0-98.0) fL MCH 21.8 L (27.0-33.0) pg MCHC 30.5 L (31.0-35.0) g/dl RDW 15.6 (11.0-16.0) % Plt Count 183 D (160-400) X10*3/uL MPV 10.0 (9.4-12.3) fL Immature Gran % (Auto) 0.3 (0.0-0.4) % Neut % (Auto) 48.9 (45-73) % Lymph % (Auto) 40.4 H (20-40) % [place] % (Auto) 9.1 (2-11) % Eos % (Auto) 1.0 (0-4) % Baso % (Auto) 0.3 (0-2) % Lymph # (Auto) 1.6 (1.2-4.9) X10*3/uL [place] # (Auto) 0.4 (0.1-1.2) X10*3/uL Eos # (Auto) 0.0 (0.0-0.4) X10*3/uL Baso # (Auto) 0.0 (0.0-0.2) X10*3/uL Abs Immat Gran (auto) 0.01 (0.00-0.03) X10*3/uL Absolute Neuts (auto) 1.9 L (2.0-8.3) x10*3/uL Absolute Nucleated RBC 0.000 (0.0-0.012) X10*3/uL Nucleated RBC % (auto) 0.0 (0.0-0.2) /100WBC Smear Tech's Comments VERIFIED Sodium 138 (135-145) mmol/L Potassium 4.3 (3.3-5.1) mmol/L Chloride 111 H (96-108) mmol/L Carbon Dioxide 24 (22-29) mmol/L Anion Gap 7 L (12-20) BUN 10 (9-16) mg/dL Creatinine 0.79 (0.5-1.4) mg/dL Estim Creat Clear Calc 94.8 Estimated GFR > 60 Random Glucose 87 (60-115) mg/dL Calcium 9.3 D (8.4-10.2) mg/dL Magnesium 1.8 (1.6-2.6) mg/dL Total Bilirubin 0.8 (0.0-1.0) mg/dL AST 16 (5-31) U/L ALT 9 (0-31) U/L Alkaline Phosphatase 67 (39-117) U/L Total Protein 8.8 H (6.5-8.0) g/dL Albumin 4.0 (3.5-5.0) g/dL Lipase 15 (8-78) U/L Beta HCG, Quant < 2 mIU/mL Urine Color Urine Appearance Urine pH (5.0-9.0) Ur Specific [place] (1.005-1.025) Urine Protein (Neg-Trace) mg/dL Urine Glucose (UA) (Negative) mg/dL Urine Ketones (Negative) mg/dL Urine Blood (Negative) Urine Nitrite (Negative) Ur Leukocyte Esterase (Negative) 01/11/23 Range/Units 20:09 WBC (4.8-10.8) X10*3/uL RBC (4.20-5.50) X10*6/uL Hgb (12.0-16.0) g/dl Hct (37.0-47.0) % MCV (80.0-98.0) fL MCH (27.0-33.0) pg MCHC (31.0-35.0) g/dl RDW (11.0-16.0) % Plt Count (160-400) X10*3/uL MPV (9.4-12.3) fL Immature Gran % (Auto) (0.0-0.4) % Neut % (Auto) (45-73) % Lymph % (Auto) (20-40) % [place] % (Auto) (2-11) % Eos % (Auto) (0-4) % Baso % (Auto) (0-2) % Lymph # (Auto) (1.2-4.9) X10*3/uL [place] # (Auto) (0.1-1.2) X10*3/uL Eos # (Auto) (0.0-0.4) X10*3/uL Baso # (Auto) (0.0-0.2) X10*3/uL Abs Immat Gran (auto) (0.00-0.03) X10*3/uL Absolute Neuts (auto) (2.0-8.3) x10*3/uL Absolute Nucleated RBC (0.0-0.012) X10*3/uL Nucleated RBC % (auto) (0.0-0.2) /100WBC Smear Tech's Comments Sodium (135-145) mmol/L Potassium (3.3-5.1) mmol/L Chloride (96-108) mmol/L Carbon Dioxide (22-29) mmol/L Anion Gap (12-20) BUN (9-16) mg/dL Creatinine (0.5-1.4) mg/dL Estim Creat Clear Calc Estimated GFR Random Glucose (60-115) mg/dL Calcium (8.4-10.2) mg/dL Magnesium (1.6-2.6) mg/dL Total Bilirubin (0.0-1.0) mg/dL AST (5-31) U/L ALT (0-31) U/L Alkaline Phosphatase (39-117) U/L Total Protein (6.5-8.0) g/dL Albumin (3.5-5.0) g/dL Lipase (8-78) U/L Beta HCG, Quant mIU/mL Urine Color Yellow Urine Appearance Clear Urine pH 5.5 (5.0-9.0) Ur Specific [place] 1.015 (1.005-1.025) Urine Protein Negative (Neg-Trace) mg/dL Urine Glucose (UA) Negative (Negative) mg/dL Urine Ketones Negative (Negative) mg/dL Urine Blood Negative (Negative) Urine Nitrite Negative (Negative) Ur Leukocyte Esterase Negative (Negative) Discharge Plan Discharge Clinical Impression: Gastritis Patient Disposition: Home, Self-Care Instructions: Gastritis (ED) Prescriptions: New omeprazole 40 mg capsule,delayed release(DR/EC) 40 mg PO DAILY Qty: 14 0RF No Action Prenate DHA (ferr asp glycin) 18 mg iron-1 mg -300 mg capsule 1 cap PO DAILY Qty: 30 0RF cefuroxime axetil 500 mg tablet 500 mg PO Q12H 10 Days Qty: 20 0RF nitrofurantoin macrocrystal 50 mg capsule 50 mg PO Q24H 30 Days Qty: 30 0RF Rx Instructions: must administer with a meal/food ondansetron 4 mg tablet,disintegrating 4 mg PO Q8H PRN (Reason: nausea and vomiting) Qty: 7 0RF cefuroxime axetil 250 mg tablet 250 mg PO BID 7 Days Qty: 14 0RF doxycycline hyclate 100 mg tablet 100 mg PO BID Qty: 14 0RF Referrals: Samantha Cifuentes MD [Physician] - Interventions: ED Discharge Assessment Last Done: 01/11/23 23:48 Discharge Date/Time: 01/11/23 23:49
[2023-01-11 16:51] LABS: Basophils Percent Auto 0.3 % (0-2); Hemoglobin 9.8 g/dl (12.0-16.0); Red Cell Distribution Width 15.6 % (11.0-16.0); SCAN SMEAR FLAG 1
[2023-01-11 16:53] LABS: Hematocrit 32.1 % (37.0-47.0); Imm Gran Abs Auto 0.01 X10*3/uL (0.00-0.03); Imm Gran Pct Auto 0.3 % (0.0-0.4); Lymphocytes Absolute Auto 1.6 X10*3/uL (1.2-4.9); Lymphocytes Percent Auto 40.4 % (20-40); MANUAL DIFF FLAG SCAN; Mean Corpuscular HGB Conc 30.5 g/dl (31.0-35.0); Mean Corpuscular Hemoglobin 21.8 pg (27.0-33.0); Mean Corpuscular Volume 71.3 fL (80.0-98.0); Monocytes Absolute Auto 0.4 X10*3/uL (0.1-1.2); Monocytes Percent Auto 9.1 % (2-11); Neutrophils Absolute Auto 1.9 x10*3/uL (2.0-8.3); Neutrophils Percent Auto 48.9 % (45-73); Platelet Count 183 X10*3/uL (160-400); White Blood Count 3.9 X10*3/uL (4.8-10.8)
[2023-01-11 17:04] LABS: Alanine Aminotransferase 9 U/L (0-31); Alkaline Phosphatase 67 U/L (39-117); Anion Gap 7 (12-20); Aspartate Amino Transferase 16 U/L (5-31); Bilirubin Total 0.8 mg/dL (0.0-1.0); Blood Urea Nitrogen 10 mg/dL (9-16); Calcium 9.3 mg/dL (8.4-10.2); Carbon Dioxide 24 mmol/L (22-29); Chloride 111 mmol/L (96-108); Creatinine Clr Calc Pharmacy 94.8; Estimated Glomerular Filt Rate > 60; Glucose Random 87 mg/dL (60-115); Lipase 15 U/L (8-78); Magnesium 1.8 mg/dL (1.6-2.6); Potassium 4.3 mmol/L (3.3-5.1); Sodium 138 mmol/L (135-145); Total Protein 8.8 g/dL (6.5-8.0)
[2023-01-11 17:10] LABS: PLT ABN DIST 1
[2023-01-11 17:15] LABS: HCG Quantitative < 2 mIU/mL
[2023-01-11 17:28] LABS: SLIDE REVIEW VERIFIED
[2023-01-11 20:22] LABS: Appearance Urine Clear; Color Urine Yellow; Glucose Urine UA Negative (Negative); Leukocyte Esterase Urine Negative (Negative); Nitrite Urine Negative (Negative); PH 5.5 (5.0-9.0); Specific Gravity - Urine 1.015 (1.005-1.025); Urine Blood Negative (Negative); Urine Ketones Negative (Negative); Urine Protein Negative (Neg-Trace)
[2023-01-11 21:39] VITALS: BP 113/61; PULSE 77; RESP 16; TEMP 36.7; O2SAT 100
[2023-01-11] MEDS: Magnesium Hydrox/Alum Hydrox 30 ML ORAL.SUSP PO (23:05)
[2023-01-11] MEDS: 0.9 % Sodium Chloride 1,000 ML 999 ML IV (23:05)
[2023-01-11] MEDS: ondansetron HCL 4 MG/2 ML VIAL IVPUSH (23:06)
[2023-01-11] MEDS: Famotidine/PF 20 MG/2 ML VIAL IVPUSH (23:06)
[2023-01-11 23:10] VITALS: BP 100/57; PULSE 64; RESP 12; TEMP 36.7; O2SAT 100
== END 2023-01-11 23:49 | disposition home or self-care (01) ==
PROVIDERS: Registered Nurse Emergency; Emergency Provider Emergency Medicine
DX: K29.70 Gastritis, unspecified, without bleeding (principal); Z79.899 Other long term (current) drug therapy
CPT/HCPCS: 36415; 80053; 81003; 83690; 83735; 84702; 85025; 96374; 96375; 99284; J2405

== ENCOUNTER 2024-02-27 15:42 | Emergency (ER) | payer MEDICAID, SELFPAY ==
--- NOTE | 2024-02-27 15:54 | ECG_ITS ---
Test Reason : SYNCOPE Blood Pressure : / mmHG Vent. Rate : 096 BPM Atrial Rate : 096 BPM P-R Int : 128 ms QRS Dur : 074 ms QT Int : 342 ms P-R-T Axes : 066 062 019 degrees QTc Int : 432 ms Normal sinus rhythm Normal ECG When compared with ECG of 23-APR-2021 03:17, No significant change was found Referred By: Mendoza Raines Electronically Signed By:RODRIGO HUFFMAN
--- NOTE | 2024-02-27 15:55 | ED.GENADULT ---
HPI - General Adult General Chief complaint: Syncope Stated complaint: 23 wk preg, leg pain, syncopal episodes Time Seen by Provider: 02/27/24 21:16 Source: patient Mode of arrival: ambulatory Limitations: no limitations History of Present Illness ED Provider: Dr. Pedroza HPI narrative: Patient is 23 weeks , she is . Patient has sickle cell trait with a history of significant anemia that waxes and wanes. She presents with a complaint of intermittent lightheadedness and leg weakness. Patient states multiple events of near syncope with no loss of consciousness. Onset (ago): week(s) Related Data Previous Rx's ?Medication ?Instructions ?Recorded vit no.78-iron 18 1 cap PO DAILY #30 caps 04/23/21 mg-folic acid no.1 1 mg-dha 300 mg capsule (Prenate DHA (ferrous asparto glycinate)) cefuroxime axetil 500 mg tablet 500 mg PO Q12H 10 days #20 tabs 07/15/21 nitrofurantoin macrocrystal 50 mg 50 mg PO Q24H 30 days #30 caps 07/15/21 capsule ondansetron 4 mg disintegrating 4 mg PO Q8H PRN nausea and 05/25/22 tablet vomiting #7 tabs cefuroxime axetil 250 mg tablet 250 mg PO BID 7 days #14 tabs 10/05/22 doxycycline hyclate 100 mg tablet 100 mg PO BID #14 tabs 10/07/22 omeprazole 40 mg capsule,delayed 40 mg PO DAILY #14 caps 01/11/23 release Allergies Allergy/AdvReac Type Severity Reaction Status Date / Time No Known Allergies Allergy Verified 02/27/24 15:59 Review of Systems Review of Systems: Yes all other systems are reviewed and are negative Neurologic: Denies Sensory deficit (Neuro) [facility] Past Medical History Medical History Anemia Preeclampsia Surgical History History of delivery Social History Social History Alcohol intake: never Patient Tobacco Use Status: Never used Tobacco Advance Directives: No Advance Directives Information Provided: No Do you have a plan to hurt others: No Plan Physical Exam ED Vital Signs: Vital Signs - 24 hr 02/27/24 15:56 Temperature 98 F Pulse Rate 93 Respiratory Rate 19 Blood Pressure 121/61 Pulse Oximetry 98 BMI result Body Mass Index 25.4 Const General: healthy appearing Nutritional Appearance: average body habitus Orientation/consciousness: oriented to person and patient oriented x3 Limitations: no limitations [facility] Head: Yes normal to inspection Ears: external ears normal General nose exam: Normal external nose present Mouth: Normal oral and palatal mucosa present and oropharynx normal Throat: Yes posterior oropharynx normal Eyes Other: very pale conjunctiva General: appearance normal, both eyes and all related structures Neck Neck: Yes normal visual inspection Chest Chest palpation & inspection: normal inspection of the chest Resp Auscultation: clear to auscultation bilaterally Cardio Jugular venous distension: no JVD Rate: regular rate Rhythm: regular rhythm Heart sounds: S1 normal heart sound present and S2 normal heart sound present GI Other: gravid abdomen, non tender Inspection: Yes normal to inspection Palpation (GI): Soft to palpation, nontender and No hepatosplenomegaly present Auscultation: normal bowel sounds General: Yes no CVA tenderness Back/Spine/Pelvis Back: no CVA tenderness Skin General skin exam: no rashes or lesions noted Neuro General: oriented to person and patient oriented x3 Cranial nerves: Yes CN's II-XII intact bilaterally Motor exam (neuro): 5/5 motor strength present throughout Sensory Exam: No Sensory deficit (Neuro) Extrem General: Yes normal to inspection Psych Appearance: grossly normal Course Course Course Narrative: This is an RME done by NURA Raines: Additional HPI, ROS, PE not included below will be deferred to primary provider. 23 year old F at 23+3 weeks gestation presenting with 4-5 episodes of feeling lightheaded and bilateral leg pain in which she feels like she is going to pass out. Patient does have care. Patient denies smoking. Plan - labs Appearance: Alert.? Oriented X3.? No acute cardiopulmonary distress distress.? Head: Normocephalic, atraumatic, no step-offs or deformities Neck: Normal inspection.? Neck supple.? CVS: Pulses normal.? Respiratory: No respiratory distress.? Abdomen: Soft and nontender.? Skin: ? Normal skin color. Extremities: 5/5 strength to bilateral upper and lower extremities Neuro: Oriented X 3.? No motor deficit.? No sensory deficit. Reevaluation(s) Reevaluation #1: patient is very anemic but not her worst which was in 2020 when she was . Discussed the need to be seen by her funding coordinator again. Encourage her iron and multivitamin supplements Time: 21:36 Medical Decision Making Differential Diagnosis Differential Diagnoses: The differential diagnosis associated with the presentation includes (hypotension, vasovagal syncope, orthostatic hypotension, anemia) Admission/Observation Consideration of admission/observation: Escalation of care including admission/observation considered (upon arrival patient was considered for admission) Lab Data 02/27/24 16:17 02/27/24 16:17 Labs: Lab Results 02/27/24 02/27/24 Range/Units 16:17 16:41 WBC 5.0 (4.8-10.8) X10*3/uL RBC 3.47 L D (4.20-5.50) X10*6/uL Hgb 8.9 L (12.0-16.0) g/dl Hct 26.5 L (37.0-47.0) % MCV 76.4 L (80.0-98.0) fL MCH 25.6 L (27.0-33.0) pg MCHC 33.6 (31.0-35.0) g/dl RDW 16.9 H (11.0-16.0) % Plt Count 158 L (160-400) X10*3/uL MPV 10.7 (9.4-12.3) fL Immature Gran % (Auto) 0.2 (0.0-0.4) % Neut % (Auto) 72.1 (45-73) % Lymph % (Auto) 19.1 L (20-40) % [place] % (Auto) 7.8 (2-11) % Eos % (Auto) 0.6 (0-4) % Baso % (Auto) 0.2 (0-2) % Lymph # (Auto) 1.0 L (1.2-4.9) X10*3/uL [place] # (Auto) 0.4 (0.1-1.2) X10*3/uL Eos # (Auto) 0.0 (0.0-0.4) X10*3/uL Baso # (Auto) 0.0 (0.0-0.2) X10*3/uL Abs Immat Gran (auto) 0.01 (0.00-0.03) X10*3/uL Absolute Neuts (auto) 3.6 (2.0-8.3) x10*3/uL Absolute Nucleated RBC 0.000 (0.0-0.012) X10*3/uL Nucleated RBC % (auto) 0.0 (0.0-0.2) /100WBC PT 11.7 (11.1-13.3) SEC INR 1.0 (0.9-1.1) Sodium 137 (135-145) mmol/L Potassium 3.4 (3.3-5.1) mmol/L Chloride 109 H (96-108) mmol/L Carbon Dioxide 24 (22-29) mmol/L Anion Gap 7 L (12-20) BUN 4 L (9-16) mg/dL Creatinine 0.65 (0.5-1.4) mg/dL Estim Creat Clear Calc 115.3 Estimated GFR > 60 Random Glucose 99 (60-115) mg/dL Calcium 8.7 D (8.4-10.2) mg/dL Total Bilirubin 0.4 (0.0-1.0) mg/dL AST 15 (5-31) U/L ALT 7 (0-31) U/L Alkaline Phosphatase 63 (39-117) U/L Total Protein 7.1 (6.5-8.0) g/dL Albumin 2.9 L (3.5-5.0) g/dL Beta HCG, Quant 45613 mIU/mL Independent Interpretation I performed an independent interpretation of an: EKG (sinus 95, no st or twave changes) External Record Review External record reviewed: Outpatient record and Prior outpatient labs Prescription Management I considered prescription management with: Antibiotic (no evidence of infection) Social Determinants Patient?s care significantly limited by Social Determinants of Health including: Low income Discharge Plan Discharge Clinical Impression: , Sickle cell trait, Anemia Patient Disposition: Home, Self-Care Instructions: Sickle Cell Disease (DC), Anemia (ED) Prescriptions: No Action Prenate DHA (ferr asp glycin) 18 mg iron-1 mg -300 mg capsule 1 cap PO DAILY Qty: 30 0RF cefuroxime axetil 500 mg tablet 500 mg PO Q12H 10 Days Qty: 20 0RF nitrofurantoin macrocrystal 50 mg capsule 50 mg PO Q24H 30 Days Qty: 30 0RF Rx Instructions: must administer with a meal/food ondansetron 4 mg tablet,disintegrating 4 mg PO Q8H PRN (Reason: nausea and vomiting) Qty: 7 0RF cefuroxime axetil 250 mg tablet 250 mg PO BID 7 Days Qty: 14 0RF doxycycline hyclate 100 mg tablet 100 mg PO BID Qty: 14 0RF omeprazole 40 mg capsule,delayed release(DR/EC) 40 mg PO DAILY Qty: 14 0RF Referrals: Rody Lovelace MD [Primary Care Provider] - 3 days Print Language: Beninese
[2024-02-27 15:56] VITALS: BP 121/61; PULSE 93; RESP 19; TEMP 36.6; O2SAT 98; BMI 25.4
[2024-02-27 16:21] LABS: MANUAL DIFF FLAG NO
[2024-02-27 16:22] LABS: Basophils Percent Auto 0.2 % (0-2); Eosinophils Percent Auto 0.6 % (0-4); Hematocrit 26.5 % (37.0-47.0); Hemoglobin 8.9 g/dl (12.0-16.0); Imm Gran Abs Auto 0.01 X10*3/uL (0.00-0.03); Imm Gran Pct Auto 0.2 % (0.0-0.4); Lymphocytes Percent Auto 19.1 % (20-40); Mean Corpuscular HGB Conc 33.6 g/dl (31.0-35.0); Mean Corpuscular Hemoglobin 25.6 pg (27.0-33.0); Mean Corpuscular Volume 76.4 fL (80.0-98.0); Mean Platelet Volume 10.7 fL (9.4-12.3); Monocytes Absolute Auto 0.4 X10*3/uL (0.1-1.2); Monocytes Percent Auto 7.8 % (2-11); Neutrophils Absolute Auto 3.6 x10*3/uL (2.0-8.3); Neutrophils Percent Auto 72.1 % (45-73); Platelet Count 158 X10*3/uL (160-400); Red Blood Count 3.47 X10*6/uL (4.20-5.50); Red Cell Distribution Width 16.9 % (11.0-16.0)
[2024-02-27 16:53] LABS: Prothrombin Time 11.7 SEC (11.1-13.3)
[2024-02-27 17:00] LABS: Alanine Aminotransferase 7 U/L (0-31); Albumin Level 2.9 g/dL (3.5-5.0); Alkaline Phosphatase 63 U/L (39-117); Anion Gap 7 (12-20); Aspartate Amino Transferase 15 U/L (5-31); Bilirubin Total 0.4 mg/dL (0.0-1.0); Blood Urea Nitrogen 4 mg/dL (9-16); Calcium 8.7 mg/dL (8.4-10.2); Carbon Dioxide 24 mmol/L (22-29); Chloride 109 mmol/L (96-108); Creatinine Clr Calc Pharmacy 115.3; Estimated Glomerular Filt Rate > 60; Glucose Random 99 mg/dL (60-115); Potassium 3.4 mmol/L (3.3-5.1); Sodium 137 mmol/L (135-145); Total Protein 7.1 g/dL (6.5-8.0)
[2024-02-27 17:29] LABS: HCG Quantitative 18612 mIU/mL
--- OUTSIDE RECORDS SUMMARY | 2024-02-27 20:18 | XMS_ITS | Continuity of Care Document ---
Author Organization [facility] ter Address [address] [place] [id number]- Care Team Providers Care Humanities Teacher Name Role Phone Triston Malcolm MD Primary Care Physician Encounter [facility] [place] Date(s): 07/04/22 - 07/05/[address] [address] Discharge Disposition: A-D/C Home Attending Physician: Farheen Gee MD Admitting Physician: Farheen Gee MD Referring Physician: Farheen Gee MD Allergies, Adverse Reactions, Alerts No Known Allergies Immunizations Given and Recorded Vaccine Date Status Refusal Reason influenza virus vaccine, inactivated 08/21/18 Give n Not Given Vaccine Date Status Refusal Reason pneumococcal 23-valent vaccine 08/21/18 Not Given Patient Refuses Medications ferrous sulfate 324 mg (65 mg elemental iron) oral delayed release tablet 1 tablet = 324 mg, By Mouth, Daily, # 90 tablet, 0 Refills, Maintenance, 10/29/21 20:12:00 EDT, [facility]/pharmacy #[id number], Partial fill upon patient request if the prescription is for a schedule II opioid drug., 158, cm, 10/28/21 9:26:00 EDT, Height, 73.3, k... Start Date: 10/29/21 Status: Ordered FLUoxetine 20 mg oral capsule 20 mg, By Mouth, Daily, # 30 tablet, Refills 0, Tot. Refills 0, Maintenance, 08/23/18 13:24:46 EST,Route to Pharmacy Electronically, [id number], [facility]/pharmacy #[id number] Start Date: 08/23/18 Stop Date: 09/22/18 Status: Ordered Multivitamins By Mouth, Daily, 0 Refills, Maintenance, 10/28/21 3:58:00 EDT, Partial fill upon patient request ifthe prescription is for a schedule II opioid drug. Start Date: 10/28/21 Status: Ordered Problem List Condition Confirmation Course Effective Dates Status H ealth Status Informant Anxiety Confirmed Active Chlamydia Confirmed 2017 Active Blood transfusion affecting Confirmed 09/16/15 Active COVID-19 affecting in second trimester Confirmed 07/14/21 Active Depression Confirmed Active Gonorrhea Confirmed 2017 Active Preeclampsia Confirmed 09/16/15 Active Pyelonephritis Confirmed 07/14/21 Active Sickle-cell trait Confirmed 03/21/18 Active UTI (urinary tract infection) during Confirmed 06/02/21 Active Vaginitis affecting in second trimester, antepartum Confirmed 07/26/21 Active Procedures Procedure Date Related Diagnosis Body Site Status section 11/18/21 Complete d Vital Signs Most recent to oldest [Reference Range]: 1 Height 158 cm (07/04/22 9:10 PM) Oxygen Saturation [94-100 %] 100 % (07/04/22 9:00 PM) Blood Pressure [90-138/55-84 mm Hg] 122/ 71mm Hg (07/04/22 9:00 PM) Respiratory Rate [16-30 br/min] 18 br/mi n (07/04/22 9:00 PM) Temperature [96.8-100.4 DegF] 98.3 DegF (07/04/22 9:00 PM) Mode of Delivery (Oxygen) Room air (07/04/22 9:00 PM) Blood pressure sites Arm, right (07/04/22 9:00 PM) Temperature Route Oral (07/04/22 9:00 PM) Social History Social History Type Response Smoking Status Never (less than 100 in lifetime) entered on: 10/28/21 Sex Note * Raeann Liang RN: PERFORM Event Display: Discharge/Transfer Note Hospital Authored Date: [id number] Nursing Discharge Note Entered On: 07/05/2022 1:14 EST Performed On: 07/05/2022 1:13 EST by Raeann Liang RN Nursing Discharge Note 2 Discharge Time : 07/05/2022 1:13 EST Discharge Level of Care at Discharge : Home/Prison/Foster Care Patient Left Unit Via : Ambulatory Patient Accompanied Off Unit with : Other: self DC Instructions Provided & Signed by Pt : Yes Patient Understands D/C Instructions : Yes Patient Instructions Discharge Signed : Yes Did Pt have Specialty Bed or Wound Vac : No Raeann Liang RN - 07/05/2022 1:13 EST * Event Display: Discharge/Transfer Note Hospital Authored Date: * Raeann Liang RN: PERFORM Event Display: Patient Education/Instruction Authored Date: [id number] Inpatient Adult Discharge Instructions [address] [address] Name: MICHAEL POWELL : 2000 Visit: 07/04/2022 20:36:00 Current Date: 07/05/2022 01:06 Account: [id number] Inpatient Adult Discharge Instructions We would like to thank you for allowing us to assist you with your healthcare needs. The following includes patient education materials and information regarding your injury/illness. Our entire staffstrives to provide an excellent experience for our patients and their families. PLEASE ENSURE YOU FOLLOW-UP PER THE INSTRUCTIONS BELOW! ?? YOUR OPINION IS IMPORTANT TO US! Please complete the survey you may receive by mail or email. Your feedback will be used to make improvements to the healthcare experiences of our patients and their families. Surveys are administered by [employer] ?? If further treatment with your primary care physician or another doctor is recommended, it is important for you to keep the appointment. Call your primary care physician or return to the Emergency Department immediately if your condition worsens, fails to improve, or new symptoms develop. If you need to find a doctor, you can call [facility] for a referral at [phone] or toll free at [phone] or log in to [email or web address].. ?? You can view and manage your care through the patient portal or by using a health care brayan of your choosing. [employer] is a website that allows you to securely view your medical information including your hospital discharge summary, office visit summaries, medications and follow-up visits. You can also request appointments, renew medications, and request access to your medical information using a health care brayan of your choosing, or just ask a question. You can enroll at [email or web address] or register during your next office visit. You have been discharged from [facility], Patient Care Unit: [id number]. If you have any questions regarding these instructions after you leave, please call us and we will be happy to assist you. [facility] Your Care Team Attending Physician Farheen Gee MD Reason for Admission Pt states LMP 04/20. Pt had + UPT 06/08. Pt had SAB 06/28. Pt has appt 07/06 with Marika Alexander CNM. Pt here with c/o bleeding X5 days bright red. Tests Performed Below is a partial list of the tests performed during your hospitalization. You may have had other tests and procedures not included in this list. Please discuss all test results with your provider. CBC HCG Plus Beta (Females and Males) Type and Screen Primary Care Provider Triston Malcolm MD Advance Directive Health Care Proxy on File Yes - Health Care Proxy No qualifying data available. Discharge Vitals Temperature: 98.3 DegF Height: 158 cm Respiratory Rate: 18 br/min ?? Systolic Blood Pressure: 122 mm Hg ?? Diastolic Blood Pressure: 71 mm Hg ?? Oxygen Saturation: 100 % ?? Studies Pending All tests and labs ordered during this hospital stay have been completed unless listed below. Please discuss all pending results with your provider listed above in these instructions. ?? No incomplete studies found What to do next Instructions From Your Doctor Discharge Orders You Need to Schedule the Following Appointments Follow Up with??please follow up with [facility] SOCIAL MEDIA CAMPAIGN MANAGER When?? Discharge Medications MICHAEL POWELL :2000 Visit Date:07/04/2022 Medications: Please continue your medications until treatment is completed or stopped by your provider. Medications not listed below should be discontinued. Discuss any questions related to medications with your provider. What How Much When Instructions Next Dose Unchanged Ferrous Sulfate (ferrous sulfate 324 mg (65 mg elemental iron) oral delayed release tablet) 1 tab(s) Oral Daily Unchanged Fluoxetine (FLUoxetine 20 mg oral capsule) 20 Milligram Oral Daily Duration: 30 Days Unchanged Multivitamin, ( Multivitamins) Oral Daily Test Results Below is a partial list of the most recent Laboratory test results done prior to this discharge. You may have had other tests and procedures not included in this list. Please discuss all test resultswith your provider. CBC (07/04/2022) ???WBC - 3.9 k/mm3???RBC - 4.03 m/mm3???Hgb - 11.7 Gm/dL???Hct - 34.1 %???MCV - 84.6 femtoliters???MCH - 29.0 pg???MCHC - 34.3 g/dL???Platelet Count - 257 k/mm3???RDW-SD - 38.5 femtoliters???MPV - 11.3 femtoliters???Nucleated RBC (Automated) - 0.0 #/100 WBC'S???Abs. NRBC - 0.0 k/mm3 HCG Plus Beta (Females and Males) (07/04/2022) ? ?BHCG (HCG & Beta) - <1 mIU/mL Type and Screen (07/04/2022) ???Blood Type - O Positive???Antibody Screen - Negative Allergies (NKA means No Known Allergies) NKA Problems Active Problems??(12) Anxiety?? Blood transfusion affecting ?? Chlamydia?? COVID-19 affecting in second trimester?? Depression?? Gonorrhea?? Preeclampsia? Pyelonephritis?? Sickle-cell trait?? UTI (urinary tract infection) during ?? Vaginitis affecting in second trimester, antepartum?? Education Materials Below is the list of Educational Leaflet Providered with your Discharge Instructions. Understanding Miscarriage: Trying Again?? Completed Spontaneous Miscarriage?? Understanding Miscarriage: Recovery?? Understanding Miscarriage: Possible Causes?? Understanding Miscarriage: Emotions?? Valuables and Belongings I fully understand and agree that [facility] accepts no responsibility for all my personal property including clothing, toilet articles, radios, jewelry, dentures, hearing aids, rings, money, or any other property that is in my possession or is brought to me after admission. I understand certain valuables may be placed in a hospital safe for a short period of time. I understand that the hospital is not liable for loss or damage due to accident, fire, or other natural occurrence while said property is in the safe. I accept full responsibility for any personal property that I keep with me, and will not hold the hospital responsible in case of loss or disappearance. I acknowledge that i have been encouraged to send valuables and belongings home. ? Other Discharge Information ? Pulmonary Rehab Status?? Pulmonary Rehab Discharge Status?? Respiratory Rate: 18 br/min ? Common Emergency Awareness Tips IS IT A STROKE? Act FAST and Check for these signs: FACE Does the face look uneven? ARM Does one arm drift down? SPEECH Does their speech sound strange? TIME Call at any sign of stroke ?? Heart Attack Signs Chest discomfort: Most heart attacks involve discomfort in the center of the chest and lasts more than a few minutes, or goes away and comes back. It can feel like uncomfortable pressure, squeezing, fullness or pain. Discomfort in upper body: Symptoms can include pain or discomfort in one or both arms, back, neck, jaw or stomach. Shortness of breath: With or without discomfort. Other signs: Breaking out in a cold sweat, nausea, or lightheaded. Remember, MINUTES DO MATTER. If you experience any of these heart attack warning signs, call to get immediate medical attention! ?? Smoking can increase your chances of developing chronic health problems and can cause harmful effects to other family members in your house. If you smoke, you are strongly encouraged to quit. Please call [facility] Link at [phone] or [phone]) or log in to [email or web address] for referrals to smoking cessation programs. ?? The National Suicide Prevention Hotline is available 22/01 if you or someone you know needs to find a reason to keep living. By calling 0-708-214-Smackages (1468) you'll be connected to a skilled, trained counselor at a crisis center in your area. INPATIENT DISCHARGE INSTRUCTIONS SIGNATURE PAGE MICHAEL POWELL Location:[facility] Registration Date and Time:07/04/2022 20:36 EST Primary Care Physician: Gold BARROS, Triston Galan, I POWELLMICHAEL MOSS, have received the above patient education materials/instructions and have verbalized understanding. If ambulance or transport services are being used I further acknowledge being given a choice of service. ?? If you need to contact me, please call me at this number: . Patient/Twister Operator Name: Patient/Twister Operator Signature: Relationship to Patient: Witness Name/Signature: Date: * Raeann Liang RN: PERFORM, SIGN, VERIFY Event Display: Patient Education Handout Authored Date: [id number] * Raeann Liang RN: PERFORM Event Display: Patient Education Leaflets Authored Date: [id number] Understanding Miscarriage: Trying Again ?? 72922 Understanding Miscarriage: Trying Again You???ve been , so you know that chances are very good it can happen again if you want it to. The choice is up to you. If you want to try again, do so when you???re ready. When to try again You may decide to try again soon. Or you may prefer to wait. To increase the chances of a healthy , your healthcare provider may suggest waiting??2 to 3??monthly period cycles. This builds up the uterine lining. As a result, the fertilized egg is more likely to implant correctly. ?? Having tests If you have repeat miscarriages, you may need a few tests. In some cases, tests can find the cause of miscarriage. Some causes, such as problems with the uterus, can often be fixed. If you have a general health problem, finding ways to control it may be all you need. ?? Healthy habits After a first miscarriage, most people go on to have a healthy . You can give a future baby the best start by eating a healthy diet. To help prevent problems during your next , stayaway from things that may place the baby at risk. While you're : ??? Don't smoke. ??? Don'tdrink alcohol. ??? Don't use drugs. ??? Don't go in hot tubs or saunas. ?? When you're ready Your health is what matters. Wait until you feel fit in your body and mind before trying to get again. Until then, enjoy your time with loved ones. Try not to let getting become your main goal. ?? Last Reviewed Date: 2021 ?? 3447-9110 [employer]. All rights reserved. This information is not intended as a substitute for professional medical care. Always follow your healthcare professional's instructions. ?? * Raeann Liang RN: PERFORM Event Display: Patient Education Leaflets Authored Date: [id number] Completed Spontaneous Miscarriage ?? [id number] Completed Spontaneous Miscarriage Today's exams show that you have had a miscarriage. This is the unplanned end of a ugknof44 weeks. When a miscarriage happens, you???re likely to have a wide range of feelings. Completed miscarriage means that the embryo or fetus, placenta, and other tissues are passed out ofthe uterus with bleeding. It???s important to know that you did not cause this to happen. Miscarriage is very common. About 1or 2 out of every [address] Miscarriage usually takes place in the first 10 weeks after conception. It may happen before you know you are . It may happen for many reasons. Often the cause is not known. Miscarriage is not your fault. It didn???t happen because you did something wrong. Sex or exercise does not cause a miscarriage. These activities are safe unless your healthcare provider tells you tostop. Even a minor fall won???t cause a miscarriage. It appears that your miscarriage is complete. This means that all tissue from the should have passed out of your uterus. If some of the tissue??is still in your uterus, you will have more cramping and bleeding.??The bleeding can be light spotting or like a period. It's usually not heavy. You may also pass some tissue. After you have recovered, you should be able to get again. Before trying, talk with your healthcare provider. Home care After you go home: ??? You may not feel well for a few days. Your body is going through changes. You will have mood swings. ??? You may have some cramping and bleeding, but it shouldn???t be severe. ??? When you are ready, you can start to go back to your normal routine. Until the bleeding stops fully, to prevent infection: ??? Don???t have sex until your healthcare provider says it???s OK. ??? Don???t use tampons. Use pads instead. ??? Don???t use douche. Having a miscarriage is stressful and upsetting. It's natural to feel sadness or grief. Partners grieve, too. It may help to talk about your feelings with family, friends, a counselor, or nuclear plant technical advisor. ?? Follow-up care See your healthcare provider in 1 to 2 weeks for a checkup. If you had an ultrasound, a radiologistwill look at it. You will be told of any results that may affect your care. If you have cramping and bleeding for more than a few days, call your healthcare provider. You willneed another exam. Your provider might need to take out the tissue with surgery. This is to preventinfection in your uterus. Or you may be given medicine to take at home. This will help the rest of the tissue come out of your body. ?? Call 911 Call 911 if you have any of these: ??? Severe pain and very heavy bleeding ??? Severe lightheadedness, passing out, or fainting ??? Fast heart rate ??? Trouble breathing ??? Confusion ??? Trouble waking up ?? When to get medical care Call your healthcare provider right away??if you have any of these: ??? Heavy bleeding that soaks 1pad an hour over 3 hours ??? Bleeding that doesn???t stop after 10 days ??? Fluid from your vagina that smells bad ??? Fever of 100.4??F (38??C) or higher ??? Pain in your lower belly (abdomen) that gets worse ??? Weakness or dizziness ?? Last Reviewed Date: 2021 ?? 2457-6577 [employer]. All rights reserved. This information is not intended as a substitute for professional medical care. Always follow your healthcare professional's instructions. ?? * Garth FLANNERY, Raeann: PERFORM Event Display: Patient Education Leaflets Authored Date: [id number] Understanding Miscarriage: Recovery ?? 37566 Understanding Miscarriage: Recovery Your body has had a shock to its system. Because of this, you may not feel well for a few days. Your body is going through changes, and you can expect mood swings. When you are ready, start back to your normal routine. Mood swings The miscarriage has caused a sudden drop in your hormone levels. This is likely to produce mood swings or make your emotions even more extreme. Stress and lack of sleep can also affect your moods. Asyour body returns to normal, these mood swings should lessen. ?? Returning to your daily routines You are the best boring mill set up operator vertical of how you feel. Do only as much as you feel up to. Also be sure to follow your healthcare provider???s directions. Keep the following in mind: ??? Return to work or your dailyroutines when you feel ready. This might be right away, or you may want to wait a few days. ??? Take showers instead of tub baths. This helps prevent infection. Your??healthcare provider will tell you when you can take baths again. ??? Don't do strenuous exercise, such as aerobics or running, untilthe bleeding slows to the rate of a normal period. ??? Wait to have sex, and don???t use tampons until your??healthcare provider says it's OK. ??? Do not douche. ?? Finding support Recognize your need to talk. Ask for support when you want it. And accept help when it???s offered.Although sharing thoughts with your partner is vital, you may also feel like talking with other family members or friends. ?? Look nearby The real experts on miscarriage are the women who have gone through it. Because miscarriage is so common, it???s likely that someone close to you has had one. You may begin to see that you???re not alone in experiencing such a loss. ?? Other sources of support Many women find it easier to talk to people who are not family or friends. If this is true for you,try contacting the following: ??? Share: and Infant Loss Support at www.nationalshare.org??? Resolve Through Sharing at www.bereavementservices.org ??? Loss Support Program at www .pregnancyloss.org ?? When to call the healthcare provider It???s normal to be sad for a while. You may even feel sad until you???re again. Be sure to call your??healthcare provider if either of the following occur: ??? You continue to have no interest in eating or are not able to sleep. ??? Your depression does not decrease. Or you get more upset. ?? Last Reviewed Date: 2022 ?? [id number] [employer]. All rights reserved. This information is not intended as a substitute for professional medical care. Always follow your healthcare professional's instructions. ?? Patient Care team information Care Team Personnel Name: Triston Malcolm MD Position: [facility] Outreach Member Role: PCP Address: Address: [address] [place] [address]- Name: Kayla Chamorro RN Position: S RN Member Role: Primary Care Nurse Care Team Related Persons Name: FRANDY FAUST Address: home [address] [address]
--- OUTSIDE RECORDS SUMMARY | 2024-02-27 20:18 | XMS_ITS | Continuity of Care Document ---
Author Organization [facility] ter Address [address] [place] [address]- Care Team Providers Care Emissions Testing And Repair Technician Name Role Phone Triston Malcolm MD Primary Care Physician [place] [facility] [place]04/22 - 07/04/[address] [address]- Discharge Disposition: Transferred to short-term general hospit Attending Physician: Yemi Damon MD Admitting Physician: Yemi Damon MD Referring Physician: Not on Staff, Referring MD Allergies, Adverse Reactions, Alerts No Known [...] tablet, 0 Refills, Maintenance, 10/29/21 20:12:00 EDT, [facility]/pharmacy #[id number], Partial fill upon patient request if the prescription is for a schedule II opioid drug., 158, cm, 10/28/21 9:26:00 EDT, Height, 73.3, k... Start Date: 10/29/21 Status: Ordered FLUoxetine 20 mg oral capsule 20 mg, By Mouth, Daily, # 30 tablet, Refills 0, Tot. Refills 0, Maintenance, 08/23/18 13:24:46 EST,Route to Pharmacy Electronically, [id number], [facility]/pharmacy #[id number] Start Date: 08/23/18 Stop Date: 09/22/18 Status: [...] in second trimester, antepartum Confirmed 07/26/21 Active Social History Social History Type Response Smoking Status Never (less than 100 in lifetime) entered on: 10/28/21 Sex Patient Care team information Care Team Personnel Name: Triston Malcolm MD Position: [facility] Outreach Member Role: PCP Address: Address: [address] [place] [address]- Name: Kayla Chamorro RN Position: [facility] RN Member Role: Primary Care Nurse Care Team Related Persons Name: FRANDY FAUST Address: home [address] [place] [id number]
[2024-02-27 21:53] VITALS: BP 116/62; PULSE 81; RESP 18; TEMP 36.6; O2SAT 100
[2024-02-27 21:54] VITALS: BP 116/62; PULSE 81; RESP 18; TEMP 36.6; O2SAT 100
== END 2024-02-27 21:55 | disposition home or self-care (01) ==
PROVIDERS: Physician Assistant; Emergency Provider Emergency Medicine; PCP Internal Medicine
DX: O99.012 Anemia complicating pregnancy, second trimester (principal); Z3A.23 23 weeks gestation of pregnancy
CPT/HCPCS: 36415; 80053; 84702; 85025; 85610; 93005; 99283

== ENCOUNTER 2025-01-16 14:31 | Outpatient (REF) | payer MEDICAID, SELFPAY ==
--- OUTSIDE RECORDS SUMMARY | 2025-01-16 13:00 | XMS_ITS | Encounter Summary ---
Author Organization [employer] Address [address] [facility] [address] [place] [address] Care Team Providers Care X Ray Developer Name Role Phone Unavailable Primary Care Provider Unavailabl e Reason for Referral * Consultation (Urgent) - Closed Specialty Diagnoses / Procedures Referred By Contac t Referred To Contact Psychiatry Diagnoses Well adult exam Mulu Kent FNP [address] [place] [address] Phone: tel: fax: Referral ID Status Reason Start Date Expiration Date V isits Requested Visits Authorized [id number] Closed Specialty Services Required 01/16/2025 07/17/2026 1 1 Encounter Details Date Type Department Care Team (Late st Contact Info) Description 01/16/2025 1:00 PM EDT Office Visit [facility] [address] [place] [address] Mulu Kent FNP [address] [place] [address] Well adult exam (Primary Dx) Social History Tobacco Use Types Packs/Day Years Used Date Smoking Tobacco: Never Passive Smoke Exposure: Never Smokeless Tobacco: Never Tobacco Cessation:Counseling Given: Not Answered Depression Answer Date Recorded Patient Health Questionnaire-9 Score 01/16/2025 Patient Health Questionnaire-9 Score 01/16/2025 Last PHQ-9: Questionnaire Data Not on file 0 01/16/2025 Housing Stability Answer Date Recorded What is your housing situation today? I have david dobbs 01/16/[address] you li ve. Do you have problems with any of the following? None of the above 01/16/2025 Food Insecurity Answer Date Recorded Within the past 12 months, y ou worried that your food would run out before you got money to buy more: Never True 01/16/2025 Within the past 12 months,th e food you bought just didn't last and you didn't have enough money to get more: Never True Transportation Answer Date Recorded In the past 12 months, has l ack of transportation kept you from medical appts, meetings, work or from getting things needed for daily living? Yes, it has kept me from non-medical meetings, work, or getting things that I need 01/16/2025 Utilities Answer Date Recorded In the past 12 months, has t he electric, gas, oil or water company threatened to shut off services in your home? No 01/16/2025 Depression Answer Date Recorded Patient Health Questionnaire-2 Score 6 01/16/2025 Internet Access Answer Date Recorded Internet Access Q1 Yes 01/16/2025 Internet Access Q2 Not on file 01/16/2025 Comments Unknown Sex and Gender Information Value Date Recorded Sex Assigned at Female 05/01/2022 10:20 AM EDT Legal Sex Female 10:20 AM EDT Gender Identity Female 05/01/2022 10:20 AM EDT Sexual Orientation Straight 05/01/2022 10 :20 AM EDT documented as of this encounter Last Filed Vital Signs Vital Sign Reading Time Taken Comments Blood Pressure 130/82 01/16/2025 1:04 PM EDT Pulse 84 01/16/2025 1:04 PM EDT Temperature 36.6 C (97.9 F) 01/16/2025 1:04 PM EDT Respiratory Rate 16 01/16/2025 1:04 PM EDT Oxygen Saturation 97% 01/16/2025 1:04 PM EDT Inhaled Oxygen Concentration - - Weight 64.2 kg (141 lb 8 oz) 01/16/2025 1:04 PM EDT Height 158.9 cm (5' 2.55 ) 01/16/2025 1:04 PM ED T Body Mass Index 25.43 01/16/2025 1:04 PM EDT documented in this encounter Functional Status * Over the past 2 weeks, how often have you been bothered by any of the following problems? Question Answer Date of Assessment Author Patient Health Questionnaire -2 Score 6 01/16/2025 1:42 PM EDT Hoa Mohr [place] * Little interest or pleasure in doing things Answer Date of Assessment Author Nearly every day 01/16/2025 1:42 PM EDT Hoa Kenny [place], [place] * Feeling down, depressed, or hopeless Answer Date of Assessment Author Nearly every day 01/16/2025 1:42 PM EDT Hoa Kenny [place], [place] * Trouble falling or staying asleep, or sleeping too much Answer Date of Assessment Author Nearly every day 01/16/2025 1:42 PM EDT Hoa Kenny [place], [place] * Feeling tired or having little energy Answer Date of Assessment Author Nearly every day 01/16/2025 1:42 PM EDT Hoa Kenny [place], [place] * Poor appetite or overeating Answer Date of Assessment Author Nearly every day 01/16/2025 1:42 PM EDT Hoa Kenny [place], [place] * Feeling bad about yourself - or that you are a failure or have let yourself or your family down Answer Date of Assessment Author Nearly every day 01/16/2025 1:42 PM EDT Hoa Kenny [place], [place] * Trouble concentrating on things, such as reading the newspaper or watching television Answer Date of Assessment Author Nearly every day 01/16/2025 1:42 PM EDT Hoa Kenny [place], [place] * Moving or speaking so slowly that other people could have noticed? Or the opposite - being so fidgety or restless that you have been moving around a lot more than usual. Answer Date of Assessment Author More than half the days 01/16/2025 1:42 PM EDT Hoa Zamarripa [place] * Thoughts that you would be better off or hurting yourself in some way Answer Date of Assessment Author Not at all 01/16/2025 1:42 PM EDT Hoa Stephens [place] * Patient Health Questionnaire-9 Score Answer Date of Assessment Author 23 01/16/2025 1:42 PM EDT Hoa Stephens [place] * How difficult have these problems made it for you to do your work, take care of things at home, or get along with other people? Answer Date of Assessment Author Very difficult 01/16/2025 1:42 PM EDT Hoa Stephens [place] * Over the last 2 weeks, how often have you been bothered by any of the following problems? Question Answer Date of Assessment Author Feeling nervous, anxious, or on edge 3 01/16/2025 1:43 PM EDT Hoa Mohr [place] Not being able to stop or control worrying 3 01/16/2025 1:43 PM EDT Hoa Mohr MA Worrying too much about different things 3 01/16/2025 1:43 PM EDT Hoa Mohr [place] Trouble relaxing 3 01/16/2025 1:43 PM EDT Hoa Zamarripa MA Being so restless that it is hard to sit still 3 01/16/2025 1:43 PM EDT Hoa Mohr MA Becoming easily annoyed or irritable 3 01/16/2025 1:43 PM EDT Hoa Mohr [place] Feeling afraid as if something awful might happen 2 01/16/2025 1:43 PM EDT Hoa Kenny [place], [place] SUYAPA-7 Total Score 20 01/16/2025 1:43 PM EDT Hoa Mohr [place] documented as of this encounter Plan of Treatment Upcoming Encounters Date Type Department Care Team (Late st Contact Info) Description 01/21/2025 2:30 PM EDT Office Visit [facility] [address] [place] [id number] Mulu Kent FNP [address] [place] [address] 02/03/2025 2:45 PM EDT Procedure Visit [facility] [address] [place] [id number] Lubna Desai CNM [address] [place] [address] Scheduled Orders Name Type Priority Associated Diagnoses Orde r Schedule Hepatitis B Core Antibody, Total Lab Routine Well adult exam Expected: 01/16/2025 (Approximate), Expires: 01/15/2026 Hepatitis B surface antigen, EIA Lab Routine Well adult exam Expected: 01/16/2025 (Approximate), Expires: 01/15/2026 Hepatitis B Surface Antibody, Qualitative Lab Routine Well adult exam Expected: 01/16/2025 (Approximate), Expires: 01/15/2026 Hepatitis C Antibody with Reflex to HCV, RNA, Quantitative, Real-Time PCR Lab Routine Well adult exam Expected: 01/16/2025, Expires: 01/15/2026 CBC Lab Routine Well adult exam Expected: 01/16/2025, Expires: 01/15/2026 HIV-1/2 Antigen and Antibodies, Fourth Generation, with Reflexes Lab Routine Well adult exam Expected: 01/16/2025 (Approximate), Expires: 01/15/2026 Hemoglobin A1c Lab Routine Well adult exam Expected: 01/16/2025 (Approximate), Expires: 01/15/2026 Lipid Panel, Standard Lab Routine Well adult exam Expected: 01/16/2025 (Approximate), Expires: 01/15/2026 Chlamydia/N. Gonorrhoeae RNA, TMA, Vaginal Microbiology Routine Well adult exam Ordered: 01/16/2025 Partial Thromboplastin Time, Activated (APTT) Lab Routine Well adult exam Expected: 01/16/2025, Expires: 01/16/2026 Scheduled Referrals Name Type Priority Associated Diagnoses Order Schedule Referral to Psychiatry Outpatient Referral Routine Well adult exam Expected: 01/16/2025 (Approximate), Expires: 07/16/2026 documented as of this encounter Visit Diagnoses Diagnosis Well adult exam- Primary Routine general medical examination at a health care facility documented in this encounter Additional Health Concerns Assessment Noted Time PHQ-9 Depression Total Score: 23 025 1:42 PM EDT documented as of this encounter
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
--- OUTSIDE RECORDS SUMMARY | 2025-01-16 14:34 | XMS_ITS | Clinical Summary ---
Author Organization [employer] [facility] Address [address] [place] [address] Care Team Providers Care Mixer Crane Operator Name Role Phone Triston Malcolm MD Primary Care Provider [phone] Allergies No known active allergies Medications Medication Sig Dispensed Refills Start Date End Date Status Vit-Fe Fumarate-FA ( Plus) 27-1 MG TABS tablet Take 1 tablet by mouth daily. 0 03/21/2021 Active Active Problems Problem Noted Date Diagnosed Date Iron deficiency anemia secondary to blood loss ( chronic) 11/16/2021 Anemia, antepartum 06/01/2021 Family History Medical History Relation Name Comments Asthma Brother Diabetes Father Hypertension Mother Relation Name Status Comments Brother Alive Father Alive Mother Alive Social History Tobacco Use Types Packs/Day Years Used Date Smoking Tobacco: Never Smokeless Tobacco: Never Alcohol Use Standard Drinks/Week Comments Never 0 (1 standard drink = 0.6 oz pur e alcohol) Sex and Gender Information Value Date Recorded Sex Assigned at Not on file Gender Identity Not on file Sexual Orientation Not on file Job Start Date Occupation Industry Not on file Not on file Not on file Last Filed Vital Signs Vital Sign Reading Time Taken Comments Blood Pressure 118/53 11/16/2021 11:57 AM EDT Pulse 100 11/16/2021 11:57 AM EDT Temperature 36.4 C (97.6 F) 11/16/2021 11:57 AM EDT Respiratory Rate - - Oxygen Saturation 100% 11/16/2021 11:57 AM EDT Inhaled Oxygen Concentration - - Weight 74.4 kg (164 lb) 11/16/2021 11:57 AM EDT Height - - Body Mass Index - - Plan of Treatment Health Maintenance Due Date Last Done Comments Hepatitis B Vaccines (1 of 3 - 3-dose series) 1998 Hepatitis C Screening 1998 COVID-19 Vaccine (#1) 1998 Depression Screening 2010 Preventative Health Evaluation 2016 Cervical Cancer Screening (Pap Smear) 2019 Influenza Vaccine (#1) 2025 08/21/2018 DTap / Tdap / Td (3 - Td or Tdap) 10/05/2031 10/04/2021, 01/29/2018 Pneumococcal Vaccine Aged Out No long er eligible based on patient's age to complete this topic RSV Ped < 20 months Aged Out No longe r eligible based on patient's age to complete this topic Care Teams Mixer Crane Operator Relationship Specialty Start Date End Date Triston Malcolm MD [address] [place] [id number] PCP - General Pediatrics 09/26/21
[2025-01-16 16:06] LABS: Hematocrit 35.8 % (37.0-47.0); Hemoglobin 12.6 g/dl (12.0-16.0); Mean Corpuscular HGB Conc 35.2 g/dl (31.0-35.0); Mean Corpuscular Hemoglobin 28.9 pg (27.0-33.0); Mean Corpuscular Volume 82.1 fL (80.0-98.0); NRBC Abs Auto 0.000 X10*3/uL (0.0-0.012); NRBC Pct Auto 0.0 /100WBC (0.0-0.2); Platelet Count 197 X10*3/uL (160-400); Red Blood Count 4.36 X10*6/uL (4.20-5.50); White Blood Count 2.6 X10*3/uL (4.8-10.8)
[2025-01-16 16:10] LABS: Partial Thromboplastin Time 33.2 SEC (26.0-36.8)
[2025-01-16 16:11] LABS: Cholesterol 147 mg/dL (<200); HDL Cholesterol 43 mg/dL (>40); Triglycerides 86 mg/dL (<150)
[2025-01-16 16:12] LABS: Hemoglobin A1C 85.2873 umol/L; Total Hemoglobin (HGBA1C) 3279.2272 umol/L
[2025-01-16 21:33] LABS: CT PCR Urine NOT DETECTED (Not Detect.); NG PCR Urine NOT DETECTED (Not Detect.)
[2025-01-17 03:41] LABS: HBS Num1 0.82 mIU/mL (0-7.99); HBc Num1 0.11 S/CO (0.00-0.79); HBsAGNum1 0.36 S/CO (0.00-0.99); HIV Num 1 0.08 S/CO (0.00-0.99); Hepatitis B Surface Antigen Negative (Negative); ~HepC Num1 0.14 S/CO (0.00-0.79); ~Hepatitis B Surface Antibody NONREACTIVE (Nonreactive); ~Hepatitis C Antibody Nonreactive (Nonreactive)
== END 2025-01-16 14:32 | disposition home or self-care (01) ==
LOC: HO.HHCL 14:31
PROVIDERS: PCP Nurse Practitioner Family; Visit Provider Nurse Practitioner Family
DX: Z00.00 Encounter for general adult medical examination without abnormal findings (principal); Z11.4 Encounter for screening for human immunodeficiency virus [HIV]; Z11.59 Encounter for screening for other viral diseases
CPT/HCPCS: 36415; 80061; 83036; 85027; 85730; 86704; 86706; 86803; 87340; 87389; 87491; 87591